=== PATIENT | male | born 1925 | race Caucasian/White ===

== ENCOUNTER 2016-04-29 12:46 | Inpatient (IN) | payer MEDICARE ==
[2016-04-29] VITALS (13 sets, daily range): BP systolic 101–153; BP diastolic 58–83; PULSE 65–92; RESP 15–24; O2SAT 96–100
[~2016-04-29] VITALS: Ht 172.7 cm; Wt 95.3 kg
[~2016-04-29 12:46] MED LIST: ACET325T51 PO; ASPI-973 PO; ATOR20TA PO; DILT120C10 PO; FERR-83 PO; FUR20 PO; LISI2.5T PO; MV,C1TAB15 PO; OMEP20CA11 PO; POLY17PO6 PO; POTA10CA42 PO; RNT300T PO; SENN-133 PO; SLO64 PO
--- NOTE | 2016-04-29 14:53 | DRSVH ---
PROCEDURE: X-RAY CHEST ONE VIEW, PORTABLE ([id number]) INDICATIONS: SHORTNESS OF BREATH TECHNIQUE: One view of the chest was acquired. COMPARISON: [facility], CR, XR CHEST 2VW, 03/26/2016, 12:42. FINDINGS: Surgical changes and devices: None. Lungs and pleura: There are increased medial right infrahilar confluent opacities. A few linear lef t retrocardiac opacities are again noted. There is mild blunting of right costophrenic angle suggest ing a small right pleural effusion. No pneumothorax. Mediastinum: Mediastinal contours appear prominent likely reflecting rotation. Heart size is border line enlarged. Bones and chest wall: No suspicious bony lesions. Overlying soft tissues appear unremarkable. IMPRESSION: 1. Increased medial right infrahilar opacities compatible with consolidation, atelectasis, or aspira tion. 2. Linear left retrocardiac opacities likely represent atelectasis or scarring. 3. Suggestion of a small right pleural effusion. Dictated by: Reymundo De Jesus M.D. on 04/29/2016 at 14:50 Approved by: Reymundo De Jesus M.D. on 04/29/2016 at 14:52
--- NOTE | 2016-04-29 15:21 | ED.REPORT ---
HPI-General Illness Date of Service Apr 29, 2016 ED Provider: Josh Corcoran DO 89yoM with PMH remarkable for Diastolic and Systolic Heart failure, SVT, second degree type 1 heart bloc, chronic troponin leak, dementia and chronic indwelling fagan catheter due to BPH presents from [facility] living facility with a report of weakness and shortness of breath. The patient is a poor historian and states that he feels perfectly normal. On comprehensive review of systems the patient denies everything except a cough, leg swelling, and both diarrhea and constipation depending on day. Nursing Notes Stated Complaint: SOB Chief Complaint: Respiratory Distress Nursing Notes Reviewed: Yes Allergies: Coded Allergies: No Known Allergies (Verified Allergy, Unknown, 07/12/15) Scheduled Aspirin (Aspirin) 81 Mg Tablet 81 MG PO DAILY Atorvastatin (Lipitor) 20 Mg Tablet 20 MG PO HS Diltiazem ER (Diltiazem ER) 120 Mg Cap.er.12h 120 MG PO BID Ferrous Sulfate (Ferrous Sulfate) 325 Mg Tablet 325 MG PO DAILY Furosemide (Furosemide) 20 Mg Tab 40 MG PO QAM Lisinopril (Lisinopril) 2.5 Mg Tablet 2.5 MG PO DAILY Magnesium Chloride (Slow-Mag) 64 Mg Tablet 64 MG PO DAILY Mv,Ca,Min/Iron Fum/FA/Lyco/Lut (Sentry Multivit & Mineral Cplt) 1 Each Tablet 1 EACH PO DAILY Omeprazole (Omeprazole) 20 Mg Capsule.dr 20 MG PO DAILY Potassium Chloride (Potassium Chloride) 10 Meq Capsule.er 10 MEQ PO BID TAKE WITH FOOD Ranitidine (Zantac) 300 Mg Tab 300 MG PO HS Scheduled PRN Acetaminophen (Acetaminophen) 325 Mg Tablet 650 MG PO Q4 PRN PRN For Pain Polyethylene Glycol 3350 (Miralax) 17 Gm/Pkt Powd.pack 17 GM PO DAILY PRN PRN For Constipation Sennosides (Senna) 8.6 Mg Tablet 8.6 MG PO BID PRN PRN For Constipation General Time Seen by MD: 13:40 [facility]red From: jail Chief Complaint Breathing problem, Cough, Weakness Hx Obtained From: Patient, Other family... (Grandson) Unable to Obtain Hx: Patient condition, Mental status Arrived By: Ambulance Sudden in Onset?: No (from [facility] records this appears to be gradual onset) Onset Occurred: Onset unknown Symptom Duration: Duration unknown Past Medical History Past Medical History Anemia Dementia chronic indwelling Fagan catheter BPH Systolic/Diastolic Congestive heart failure SVT Second degree type 1 heart block Hyperlipidemia Reports: Congestive heart failure, Hyperlipidemia Past Surgical History Reports: Tonsillectomy Smoking History Never Smoker Social History The POLST form is reviewed from the skilled nursing which specifies comfort measures only. When I review this with his son, he says limited interventions is actually the selection that they would like. Part A still is DO NOT RESUSCITATE Alcohol Use: Denies alcohol use Other Social History: Lives in skilled nursing, Local resident ([facility]) Ambulatory Status Wheelchair Review of Systems Full Review of Systems Constitutional: Denies: Chills, Fever Eyes: Denies: Blurred bilateral, Eye pain bilateral Ears / Nose / Throat: Denies: Ear ringing bilateral, Hearing loss bilateral, Sore throat Respiratory: Reports: Non-productive cough, Denies: Pleuritic pain, Shortness of breath Cardiovascular: Denies: Chest pain, Palpitations GI: Reports: Constipation, Diarrhea, Denies: Abdominal pain, Nausea, Vomiting Male: Denies Flank pain, Denies Hematuria Musculoskeletal: Reports: Extremity swelling Hematologic: Denies Bleeding, Denies Bruising Endocrine: Denies: Cold intolerance, Heat intolerance Skin: Denies Diaphoresis, Denies Rash Allergy / Immune: Denies: Rhinorrhea, Sneezing Neurologic: Denies: Headache, Numbness, Unable to speak Psychiatric: Denies: Agitation, Change mental status Complete sys rev & neg: except as marked. Physical Exam Vital Signs Vital Signs Date Time Temp Pulse Resp B/P Pulse Ox O2 Delivery O2 Flow Rate FiO2 04/29/16 13:55 36.4 80 15 133/66 98 Room Air 04/29/16 12:51 37 65 20 112/62 97 Room Air Initial VS: Reviewed General/Constitutional: Well-developed, Well-nourished Head / Eyes: Atraumatic, Normocephalic, PERRL ENT: Conjunctiva normal, No scleral icterus Neck: Supple, Non-tender, Full range of motion Abdomen / GI: Soft, Non-tender, No guarding, No rebound, No distention Back: No CVA tenderness Lymphatic: No lymphadenopathy Extremities: Vascular intact, Neuro intact, No swelling, No tenderness Skin: Warm, Dry General/Constitutional: Awake, Alert, No acute distress Appearance / Presentation: Positive: Obese chronically ill appearing Head / Eyes: Normocephalic, PERRL, No scleral icterus, Conjunctiva NL ENT: Airway patent, Mucous membranes moist, Pharynx NL Neck: Supple, No meningismus, Full range of motion, No swelling, Non-tender, No masses Neck Vascular: Positive: JVD moderate Respiratory / Chest: No respiratory distress, No rhonchi, No wheezing, No stridor, No chest tenderness Rales / Rhonchi: Positive: Rales L up to 1/3, Rales R base Heart Rate / Rhythm: Positive: Irreg irregular rhythm Heart Sounds / Murmur: Positive: Heart sounds diminished Lower Ext Edema: Positive: Anasarca chronic venous stasis changes in his lower legs bilaterally Abdomen: Non-tender, No guarding, No rebound, BS normoactive, No distention Neurologic: Speech NL Abnormal Mood/Affect: Positive: Depressed, Flat affect decreased conversation consistent with chronic dementia Re-Eval/Medical Decision Med Decision/Clinical Course 89yoM with PMH of CHF dementia and chronic indwelling fagan presents with report of weakness and shortness of breath from [facility]. The patient had clinical diagnosis of CHF exacerbation with JVD, bilateral rales, anasarca. CMP, BNP, CBC, CXR ordered currently awaiting results. The patient = living at facility with staff appears to be stable enough to be discharged on increased Lasix and follow up with PCP. Transfer of care to Dr. Sow in [facility] ED. Discharge & Departure Shift Change Sign-Out Patient Care Transferred: Yes Discussed Complaint(s): Yes Laboratory Evaluation: Done, results pending Imaging Studies: Done, await radiologist Primary Impression: CHF (congestive heart failure) Referrals: Gera Gonzalez MD (PCP) Care Transferred to: [facility] Transferred at: 15:15 Attending Statement The patient was seen and examined together with Dr. sifuentes on 04/29/16 and I have added additional information to the note above. Rakesh Sifuentes DO Apr 29, 2016 14:52 Josh Corcoran DO Apr 29, 2016 15:24
[2016-04-29 15:29] LABS: BASOPHILS % (AUTO) 0.6 % (0-3); EOSINOPHILS % (AUTO) 0.8 % (0-5); MONOCYTES % (AUTO) 9.2 % (4-12); Mean Corpuscular Hemoglobin 30.4 pg (27.0-35.0); Mean Corpuscular Volume 93.2 fL (81-100); NEUTROPHILS % (AUTO) 72.1 % (40-74); Platelet Count 240 bil/L (150-400)
[2016-04-29 16:08] LABS: TROPONIN T 0.041 ug/L (0.0-0.011)
[2016-04-29] MEDS ORDERED: Nitroglycerin 2% 1 Gm Ointment TOPICAL SCH (16:50)
[2016-04-29] MEDS ORDERED: Alum-Mag Hydrox-Simeth 30 mL Suspension PO PRN (17:35)
[2016-04-29] MEDS ORDERED: Polyethylene Glycol (PEG) 17 Gm Powder PO PRN (17:35)
[2016-04-29] MEDS ORDERED: Ondansetron 2 mg/mL 2 mL Inj IVPUSH PRN (17:35)
[2016-04-29 17:51] LABS: APPEARANCE,URINE HAZY (CLEAR,HAZY); COLOR,URINE YELLOW (YELLOW); OCCULT BLOOD,URINE TRACE (NEGATIVE); PH,URINE 5.5 (5.0-8.0); UROBILINOGEN,URINE NORMAL (NORMAL)
[2016-04-29] MEDS: 0.9% Sodium Chloride 1,000 ML IV SCH (18:29)
--- NOTE | 2016-04-29 18:52 | NUR ---
Admit to [facility] Pt arrived from ED at 1820. Pt oriented to self and time; confused about place. PIV patent and asymptomatic. VSS. No complaints of pain. Personal possessions (wheelchair with pt). No family with pt at this time.
[2016-04-29] MEDS ORDERED: AMOX1TAB11 PO (19:49)
[2016-04-29] MEDS ORDERED: OSEL75CA15 PO (19:49)
--- NOTE | 2016-04-29 23:01 | PCM.HPMED ---
Subjective Date of Service Apr 29, 2016 Primary Provider: Admitting Physician: Seun Singh MD Primary Care Physician: Gera Gonzalez MD Attending Physician: Seun Singh MD Admit Status: From the Emergency Department, 23-Hour Observation, Remote Telemetry Chief Complaint: Weakness at facility History of Present Illness: Jude [place] is a 89yo M with Diastolic and Systolic Heart failure, SVT, second degree type 1 heart bloc, chronic troponin leak, dementia and chronic indwelling fagan catheter due to BPH presents from [facility] with a report of weakness and shortness of breath. The patient is a poor historian and states that he feels perfectly normal. On comprehensive review of systems the patient denies everything except a cough, leg swelling, and both diarrhea and constipation depending on day. Facility reported some noticeable changes with weakness. Associated symptoms include bladder incontinence, bladder retention and dyspnea. Patient has indwelling catheter and is on Augmentin for UTI. Case discussed with Dr Sow, concern for elevated troponin and weakness. Plan to admit to trend troponin overnight Review of Systems: Limited due to dementia Allergies Coded Allergies: No Known Allergies (Verified Allergy, Unknown, 04/29/16) Home Medications From [facility], not yet confirmed Jude [place] [phone] 04/29/2016 11:50 AM 03/13 amoxicillin 500 mg-potassium clavulanate 125 mg tablet take 1 tablet by oral route every 12 hours for 10 days aspirin 81 mg tablet,delayed release take 1 tablet by oral route every day for heart atorvastatin 20 mg tablet GIVE 1 TABLET BY MOUTH AT BEDTIME DX: HYPERLIPIDEMIA diltiazem ER (XR/XT) 120 mg capsule,extended release,controlled GIVE 1 CAPSULE twice daily FERROUS SULFATE 325 MG TABLET GIVE 1 TABLET BY MOUTH EVERY MORNING FOR ANEMIA FUROSEMIDE 20MG TAB GIVE 2 TABLETS EVERY MORNING levofloxacin 250 mg tablet 500mg X 1 day, then 250mg daily for 6 days LISINOPRIL 2.5 MG TABLET TAKE 1 TABLET DAILY Mag 64 64 mg tablet,delayed release take 1 tablet by mouth daily omeprazole 20 mg capsule,delayed release take 1 capsule by mouth every morning 1 hour prior to breakfast for acid reflux. potassium chloride ER 10 mEq tablet,extended release GIVE 1 TABLET TWICE DAILY WITH MEALS FOR SUPPLEMENTATION. ranitidine 300 mg capsule take 1 capsule by oral route every day at bedtime for acid reflux. Senna Laxative take 2 tablet by oral route 2 times every day SENTRY VIT/MINERAL GIVE 1 TABLET BY MOUTH EVERY MORNING FOR SUPPLEMENT PMH Anemia Dementia chronic indwelling Fagan catheter BPH Diastolic Congestive heart failure SVT Second degree type 1 heart block Hyperlipidemia . Surgical History Tonsillectomy Family History Mother had a stroke in her 60s, as well as diabetes Father had a heart attack in his 60s Brother had pancreatic cancer in his 70s Brother had colon cancer in his 50s Sister has diabetes and A. fib Social History Hx Alcohol Use: No Hx Substance Use: No Hx Tobacco Use: No Smoking Status: Never Smoker Living Arrangement: Assisted Living ([facility]) Exam Vital Signs Vital Sign - Last Date Time Temp Pulse Resp B/P Pulse Ox O2 Delivery O2 Flow Rate FiO2 04/29/16 18:03 76 16 113/80 98 Room Air 04/29/16 13:55 36.4 Exam General: Alert, Demented with poor recall, No acute Distress Eyes: PERRLA, Scleral Anicteric Mouth: Mouth Normal, Mucous Membranes Moist/[employer] Neck: Supple, no Thyromegaly, trachea central. Chest & Lungs: Clear to auscultation & percussion, No adventitious breath sounds, no crackles, no wheeze Cardiovascular: Normal S1, Normal S2, No Murmurs/Rubs/Gallops, Regular Rate/ Rhythm, (No JVD, no peripheral edema) Pulses: Radial (present and equal), Dorsalis Pedi (present and equal) Abdomen: Soft, Non-tender, Non-distended, Normoactive bowel tones. Musculoskeletal: Unremarkable. Normal range of motion, no swollen or erythematous joints Extremities: No edema, no cyanosis, no clubbing. Skin: No rashes. Warm and dry, no erythematous areas Neurological: Grossly neurologically intact, has generalized weakness, Normal Speech, Sensation Intact Lymphatic: Lymph nodes Cervical and Axillary not palpable Lab and Diagnostics Labs Laboratory Tests Test 04/29/16 15:16 04/29/16 17:24 White Blood Count 8.3th/mm3 (3.8-10.1) Red Blood Count 4.11mil/mm3 (4.40-5.80) Hemoglobin 12.5g/dL (13.8-17.2) Hematocrit 38.3% (41.0-50.0) Mean Corpuscular Volume 93.2fL (81-100) Mean Corpuscular Hemoglobin 30.4pg (27.0-35.0) Mean Corpuscular Hemoglobin Concent 32.6% (32.0-37.0) Red Cell Distribution Width 15.2% (12.3-15.4) Platelet Count 240bil/L (150-400) Neutrophils (%) (Auto) 72.1% (40-74) Lymphocytes (%) (Auto) 16.7% (14-46) Monocytes (%) (Auto) 9.2% (4-12) Eosinophils (%) (Auto) 0.8% (0-5) Basophils (%) (Auto) 0.6% (0-3) Sodium Level 135mEq/L (134-144) Potassium Level 3.9mEq/L (3.5-5.2) Chloride Level 97mEq/L (97-108) Carbon Dioxide Level 23mmol/L (18-29) Blood Urea Nitrogen 15mg/dL (8-27) Creatinine 0.97mg/dL (0.76-1.27) Estimat Glomerular Filtration Rate 78mL/min (>59) Glucose Level 113mg/dL (60-99) Lactic Acid Level 1.4mmol/L (0.4-2.0) Calcium Level 8.7mg/dL (8.5-10.1) Total Bilirubin 0.3mg/dL (0.0-1.2) Aspartate Amino Transf (AST/SGOT) 19U/L (0-50) Alanine Aminotransferase (ALT/SGPT) 11U/L (0-44) Alkaline Phosphatase 101U/L (25-160) Troponin T 0.041ug/L (0.0-0.011) Pro-B-Type Natriuretic Peptide 811.6pg/mL (0-486) Total Protein 7.0g/dL (6.4-8.4) Albumin 3.6g/dL (3.4-5.0) Hold Lara Top Tube Received (Received) Urine Color Yellow (YELLOW) Urine Appearance Hazy (CLEAR,HAZY) Urine pH 5.5 (5.0-8.0) Urine Specific [place] 1.025 (1.003-1.035) Urine Protein Negativemg/dL (NEG,TRACE) Urine Glucose (UA) Negativemg/dL (NEGATIVE) Urine Ketones Negativemg/dL (NEGATIVE) Urine Occult Blood Trace (NEGATIVE) Urine Nitrite Negative (NEGATIVE) Urine Bilirubin Negative (NEGATIVE) Urine Urobilinogen Normalmg/dL (NORMAL) Urine Leukocyte Esterase Trace (NEGATIVE) Urine RBC 0-2/hpf (0-2) Urine WBC 0-5/hpf (0-5) Urine Epithelial Cells None/hpf (NONE-MOD) Urine Crystals None seen (NONE SEEN) Urine Bacteria Few/hpf (NONE-FEW) Urine Hyaline Casts None/lpf (NONE) Urine Granular Casts None seen (NONE SEEN) Urine Waxy Casts None seen (NONE SEEN) Urine Red Blood Cell Casts None seen (NONE SEEN) Urine White Blood Cell Casts None seen (NONE SEEN) Urine Mucus None seen (None Seen) Urine Trichomonas None seen (NONE SEEN) Urine Yeast None (NONE SEEN) Urinalysis Comment None Urine Culture Reflexed Indicated Microbiology 04/29/16 Blood Culture, Received Pending 04/29/16 Urine Culture, Received Pending Result Diagram: 04/29/16 1516 04/29/16 1516 X-Rays, CTs and MRIs X-RAY CHEST ONE VIEW, PORTABLE 04/29 IMPRESSION: 1. Increased medial right infrahilar opacities compatible with consolidation, atelectasis, or aspiration. 2. Linear left retrocardiac opacities likely represent atelectasis or scarring. 3. Suggestion of a small right pleural effusion. Dictated by: Reymundo De Jesus M.D. on 04/29/2016 at 14:50 Approved by: Reymundo De Jesus M.D. on 04/29/2016 at 14:52 Assessment & Plan Jude [place] is a 89yo M with Diastolic and Systolic Heart failure, SVT, second degree type 1 heart bloc, chronic troponin leak, dementia and chronic indwelling fagan catheter due to BPH presents with a report of weakness and shortness of breath. Troponin noted to be elevated prompting admission 1. Generalized weakness. Present on admission Etiology unclear but suspect multifactorial. Suspect ischemic disease in conjunction with elevated troponin. Consider deconditioning - treat underlying cause - trending troponin - Physical therapy and social work consultation 2. Elevated troponin. Present on admission Due to demand ischemia. Doubt this represents NSTEMI without any anginal or equivalent complaints - trending troponin - complete echo in the morning 3. Recent Urinary tract infection. Present on admission Urinalysis showed no infection - stop all antibiotics at this time - maintain Fagan catheter with scheduled changes at facility - outpatient Urology consultation 4. Unspecified dementia, ongoing - Patient appears to be at baseline. - Avoid benzodiazepines due to age and high risk for delirium - Consideration to avoid haloperidol given patient's ongoing cardiology concerns , however EKGs are negative for QTC prolongation currently 5. Chronic diastolic congestive heart failure, - Previous echo on August 08, 2015 shows HFpEF, no decreased EF, trace mitral and aortic valvular regurgitation, and pulmonary hypertension - no clinical evidence of decompensation or fluid overload 6. Pulmonary Hypertension, Chronic - considered probably secondary to MASOOD - evaluate for need of sleep study as an outpatient 7. Hyperlipidemia - continue Atorvastatin 20mg - Acetaminophen as needed for mild pain/fever/headache - Bowel regimen as needed - Antiemetic as needed Patient is admitted under observation status with expected length of stay less than 2 midnights due to severity of presenting symptoms, risk of adverse event, and complexity of treatment plan. . Resuscitation Status: DNR/DNI:Do Not Resuscitate/Intubate Seun Singh MD Apr 29, 2016 18:48
[2016-04-30] MEDS: Heparin 5,000 Unit/mL Inj SUBQ SCH ×3 (00:43→20:02)
[2016-04-30 01:09] VITALS: BP 132/74; PULSE 71; RESP 18; O2SAT 97
[2016-04-30] MEDS: 0.9% Sodium Chloride 1,000 ML IV SCH ×2 (04:12→14:24)
[2016-04-30 04:44] VITALS: BP 123/76; PULSE 77; RESP 20; O2SAT 96
--- NOTE | 2016-04-30 06:12 | NUR ---
Confusion Patient sleeping most of night. Patient confused about where he is. No pain. Tele sinus 71 with 1st degree. Patient alert to self only.
[2016-04-30] MEDS: Diltiazem CD 120 mg ER24 Capsule PO SCH ×2 (10:02→20:30)
[2016-04-30 11:26] VITALS: PULSE 98
[2016-04-30 12:08] VITALS: BP 143/72; PULSE 75; RESP 20; O2SAT 95
--- NOTE | 2016-04-30 13:25 | DRSVH ---
[facility] [address] [place] [address] Echocardiogram Report Name: AMERICA MARTÍNEZ Study Date: 04/30/2016 Height: 68 in Hospital Exam Location: [facility] Weight: 209 lb Gender: Male BSA: 2.1 m2 : 1925 Age: 89 yrs BP: 123/76 mmHg Reason For Study: Elevated Troponin Ordering Physician: Performed By: Arleen Muller Referring Physician: Deana Gonzalez Interpretation Summary 1) Normal left ventricular size and systolic function (EF 55-60%). 2) No obvious focal wall motion abnormalities noted but poor endocardial definition reduces the sensitivity for the detection of such. 3) Mildly dilated right ventricle with normal function. 4) Age related calcification of the aortic and mitral valves but no significant stenosis or regurgitation present. 5) Compared to the Echo done 08/08/2015, no significant change when compared visually. Procedure: A two-dimensional transthoracic echocardiogram with color flow and Doppler was performed. The study quality was technically adequate. Comparison is made with the echocardiogram of 08/08/15. The patient was in sinus tachycardia with heart rates between 71-130 bpm during the exam. Left Ventricle: The left ventricle is normal in size. Proximal septal thickening is noted. There is normal left ventricular wall thickness. The ejection fraction is estimated to be 55-60%. Left ventricular systolic function is normal. There are no obvious focal wall motion abnormalities noted but poor endocardial definition reduces the sensitivity for the detection of such. Assessment of diastolic parameters indicates a relaxation abnormality of the left ventricle, consistent with normal filling pressures. Right Ventricle: The right ventricle is mildly dilated. The right ventricular wall motion is normal. Atria: The left atrium is moderately dilated. Right atrial size is normal. The interatrial septum is intact with no evidence for an atrial septal defect. Mitral Valve: The mitral valve leaflets appear thickened, but open well. There is mild mitral annular calcification. There is mild mitral regurgitation. Aortic Valve: The aortic valve is trileaflet. Leaflet mobility is mild to moderately reduced. The aortic valve is moderately calcified. There is no aortic valve stenosis. There is trace aortic regurgitation. Tricuspid Valve: The tricuspid valve is normal in structure and function. There is trace tricuspid regurgitation. Pulmonary artery pressures cannot be estimated because of the lack of a measurable TR jet velocity. Pulmonic Valve: The pulmonic valve is normal in structure and function. There is a trace or physiologic amount of pulmonic regurgitation. Great Vessels: The aortic root is normal size. The ascending aorta is normal in size. The aortic arch could not be visualized. The pulmonary artery is not well visualized, but is probably normal size. The inferior vena cava was not visualized. Pericardium/ Pleura There is no pericardial effusion. There is no pleural effusion. MMode/2D Measurements & Calculations LVIDd: 5.0 cmLA dimension: 3.5 cm RA long axis: 5.8 cm LVOT diam LVIDs: 3.6 cm FS: 27.8 % LA A2 area: 26.5 cm RA area: 14.3 cm AoV Opening EPSS: 0.43 cmLA A4 area: 25.2 cm RA vol: 29.8 ml IVSd: 1.4 cm LA length (vol): 5.8 cm RA : 14.3 ml/m2 Ao root diam LVPWd LA vol: 98.3 ml : 0.9cm asc Aorta Diam LA vol index: 47.2 ml/m2 KATHRINE (plan) LV whittaker. diameter/BSA LV sys. diameter/BSA RVD1 (basal) (cm/m^2): 2.4 (cm/m^2): 1.7 : 1.6 cm2 Doppler Measurements & Calculations Ao V2 max MV E max uriel MV E/A: 0.86 PA V2 max : 156.8 cm/sec : 79.9 cm/sec Med Peak E' Uriel : 122.3 cm/sec Ao max PG MV A max uriel PA mean PG : 9.8 mmHg : 92.8 cm/sec E/E' med: 18.1 Ao mean PG MV P1/2t: 57.6 msec Lat Peak E' Uriel PA Accel Time : 0.06 sec LVOT Max Uriel E/E' lat: 8.1 : 103.4 cm/sec E/e' average: 13.1 KATHRINE(I,D): 2.6 cm MV A dur: 0.13 sec sev ratio MV dec time MV P1/2t max uirel Ao V2 mean LV V1 max PG : 0.19 sec : 119.2 cm/sec MVA(P1/2t): 3.8 cm2 Ao V2 VTI: 26.0 cm LV V1 VTI KATHRINE(V,D): 2.1 cm2 : 20.5 cm PA V2 mean KATHRINE indexed to BSA : 76.5 cm/sec (cm^2/m^2): 1.2 Reading Physician:01:24 PM
--- NOTE | 2016-04-30 13:40 | NUR ---
Social Work-initial assessment/readiness for discharge: Data:See initial assessment. Pt is a 89 y/o male who was admitted on 04/29/16 for weakness per H&P. Pt's insurance is [employer] and [employer] and PCP is Gera Gonzalez MD. EMR Reviewed. Pt has baseline confusion, so GIOVANI placed a call to cyndy Blandon [phone] to discuss discharge planning, GIOVANI role explained. Pt resides at [facility] where he remains independent with basic ADLS. Pt uses a w/c at baseline and does not drive. Pt has history with and has been to [email or web address] in the past. 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 SW discussed DPOA/ advanced directive, nephew confirms that this is on file at the hospital. Nephew confirms that he plans on having pt return to [facility] at discharge. GIOVANI spoke with Belia at [facility] who confirms that pt is able to return at discharge without new assessment. Belia states that GIOVANI will just need to fax over discharge orders to [phone]. Belia states they have transport available sometimes, but if not then nephew would have to transport. 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 GIOVANI will continue to follow. Assessment:Pt who reside at [facility]. Plan:Pt to discharge back to [facility] Assisted living when medically sable. [facility] will just need discharge information faxed to them upon discharge. GIOVANI will continue to follow. CLINT He Addendum: 04/30/16 at 1410 by DINO KING Amended: Links added.
--- NOTE | 2016-04-30 15:51 | PCM.PNMED ---
Subjective Date of Service Apr 30, 2016 Subjective Pt seen and examined, patient is very apathetic to his hospital admission, and it is clear that he does not fully understand to as why he is here. Patients cardiac enzymes have all been normal, he does not report any chest pain, nor does he have any cardiac dysfunction. As was seen on his echocardiogram. Patient was seen to have frequent choking episodes today, patient choked while taking meds and while eating. Patient will have his diet changed to nectar thick and he will be seen by speech and swallow tomorrow. Exam Vital Signs Vital Sign - Last Date Time Temp Pulse Resp B/P Pulse Ox O2 Delivery O2 Flow Rate FiO2 04/30/16 12:08 37.3 75 20 143/72 95 Room Air Intake and Output 04/29/16 04/29/16 04/30/16 Cumulative From/Thru 15:00 23:00 07:00 04/29/16 12:51 - 04/30/16 06:51 Intake Total 0 ml 0 ml Output Total 800 ml 450 ml 1250 ml Balance -800 ml -450 ml -1250 ml Intake Oral 0 ml 0 ml Output Urine Total 800 ml 450 ml 1250 ml Exam General: Alert, Oriented X3, Cooperative, No acute Distress Eyes: PERRLA, Scleral Anicteric Mouth: Mouth Normal, Mucous Membranes Moist/[place] Neck: Supple, no Thyromegaly, trachea central. Chest & Lungs: Clear to auscultation & percussion, No adventitious breath sounds, no crackles, no wheeze Cardiovascular: Normal S1, Normal S2, No Murmurs/Rubs/Gallops, Regular Rate/ Rhythm, (No JVD, no peripheral edema) Pulses: Radial (present and equal), Dorsalis Pedi (present and equal) Abdomen: Soft, Non-tender, Non-distended, Normoactive bowel tones. Musculoskeletal: Unremarkable. Normal range of motion, no swollen or erythematous joints Lab and Diagnostics Result Diagram: 04/29/16 1516 04/29/16 1516 X-Rays, CTs and MRIs X-RAY CHEST ONE VIEW, PORTABLE 04/29 IMPRESSION: 1. Increased medial right infrahilar opacities compatible with consolidation, atelectasis, or aspiration. 2. Linear left retrocardiac opacities likely represent atelectasis or scarring. 3. Suggestion of a small right pleural effusion. Dictated by: Reymundo De Jesus M.D. on 04/29/2016 at 14:50 Approved by: Reymundo De Jesus M.D. on 04/29/2016 at 14:52 Assessment & Plan Jude Florence is a 89yo M with Diastolic and Systolic Heart failure, SVT, second degree type 1 heart bloc, chronic troponin leak, dementia and chronic indwelling fagan catheter due to BPH presents with a report of weakness and shortness of breath. Troponin noted to be elevated prompting admission 1. Generalized weakness. Present on admission Etiology unclear but suspect multifactorial. Suspect ischemic disease in conjunction with elevated troponin. Consider deconditioning - PT has noticed a marked decline in his ability to transfer - pt additionally has new onset choking while drinking fluids - will have PT reassess and speech and swallow to see patient 2. Elevated troponin. Present on admission Due to demand ischemia. Doubt this represents NSTEMI without any anginal or equivalent complaints - negative will stop trending - ECHO is unchanged from last year 3. Recent Urinary tract infection. Present on admission Urinalysis showed no infection - stop all antibiotics at this time - maintain Fagan catheter with scheduled changes at facility - outpatient Urology consultation 4. Unspecified dementia, ongoing - Patient appears to be at baseline. - Avoid benzodiazepines due to age and high risk for delirium - Consideration to avoid haloperidol given patient's ongoing cardiology concerns , however EKGs are negative for QTC prolongation currently 5. Chronic diastolic congestive heart failure, - Previous echo on August 08, 2015 shows HFpEF, no decreased EF, trace mitral and aortic valvular regurgitation, and pulmonary hypertension - no clinical evidence of decompensation or fluid overload - ECHO is unchanged 6. Pulmonary Hypertension, Chronic - considered probably secondary to MASOOD - evaluate for need of sleep study as an outpatient 7. Hyperlipidemia - continue Atorvastatin 20mg - Acetaminophen as needed for mild pain/fever/headache - Bowel regimen as needed - Antiemetic as needed Patient is admitted under observation status with expected length of stay less than 2 midnights due to severity of presenting symptoms, risk of adverse event, and complexity of treatment plan. Anticipated discharge is tomorrow. . VTE Mechanical Devices: Intermittant Pneumatic CD Resuscitation Status: DNR/DNI:Do Not Resuscitate/Intubate Elvis Carlos MD Apr 30, 2016 15:51
--- NOTE | 2016-04-30 16:29 | NUR ---
Evaluation completed. Please go to "Notes" then click on "Assessments and Notes" (bottom left corner of screen). Then select appropriate discipline tab on top of screen.
[2016-04-30 19:55] VITALS: BP 133/72; PULSE 89; RESP 20; O2SAT 93
[2016-04-30 20:00] VITALS: PULSE 96
--- NOTE | 2016-04-30 20:01 | NUR ---
Change in condition, strict NPO Pt showing L side decrease, noticed pt coughing and belching post med administration. Water repeatedly escaped the left side of his mouth with med administration. Notified MD who ordered swallow eval and PT consult. Speech and PT consulted pt, their notes are documented. Pt found to be listing to the left with a severe decrease in strength as well as placed on a strict NPO diet with preference on IV meds only. Pt has non-productive, wet sounding cough, elevated HOB 30 degrees. Pt Alert and oriented x 1 to self, needs repeated cues. Incontinent of bowel. WCTM pt for additional changes on PT condition. MD notified aware of changes on pt condition.
--- NOTE | 2016-04-30 22:00 | NUR ---
Activity/condition Pt alert/oriented to self, not place or time and is able to follow directions. Pt is moving all extremities equally, no arm drift noted. Face is symmetrical when smiling and sticking out tongue. 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 Pt had a large BM at beginning of shift and is being turned q2 hrs. Aurea alarm is in place for safety. Tate catheter is patent, draining clear urine. Oral care performed as pt is NPO.
[2016-04-30] MEDS ORDERED: Acetaminophen IV 1,000 MG in IV Premix 1 EACH IV PRN (23:15)
[2016-05-01] VITALS (15 sets, daily range): BP systolic 89–111; BP diastolic 52–75; PULSE 69–134; RESP 14–28; O2SAT 93–99
[2016-05-01] MEDS: Heparin 5,000 Unit/mL Inj SUBQ SCH ×4 (00:30→22:27)
--- NOTE | 2016-05-01 00:33 | NUR ---
Fever Pt temperature up to 38.8. MD gallardo and ordered IV Tylenol since pt strict NPO. Administered IV Tylenol and will continue to monitor. Addendum: 05/01/16 at 0154 by STEPHANI MREAZ RN temp now down to 37 degrees celsius
--- NOTE | 2016-05-01 01:11 | NUR ---
Heparin Heparin dose off schedule, call made to Pharmacist about earliest time to give and they said to wait to give until morning 0830 dose.
[2016-05-01] MEDS: 0.9% Sodium Chloride 1,000 ML IV SCH ×4 (04:12→22:26)
--- NOTE | 2016-05-01 08:08 | NUR ---
HR SBP-109; HR-130's. Denies chest pain/nausea/SOB. Dr. Terrance gallardo and made aware. Waiting for orders at this time. Addendum: 05/01/16 at 0920 by MEREDITH CHURCHILL RN HR New orders received for IV Verapamil. Layo Layne RN to administer ordered dose. Will continue to monitor.
[2016-05-01] MEDS ORDERED: Verapamil 2.5 mg/mL 2 mL Inj IV ONE (08:20)
[2016-05-01] MEDS: Diltiazem CD 120 mg ER24 Capsule PO SCH ×2 (08:30→19:18)
--- NOTE | 2016-05-01 09:13 | NUR ---
Assist with administration of verapamil 5mg IVP. Bedside monitoring with MP 30. Heart rate 133, BP 99/56, pt denies CP/SOB or any s/s distress prior to dose. Unable to identify SD interval while tachycardic. Post verapamil heart rate is labile 77-120's. SD prolonged at .36, increased ventricular ectopy during periods of lower hear rates. While monitored pt is observed to have ~15 second apneic pauses while asleep. Please see rhythm strips posted in paper chart.
--- NOTE | 2016-05-01 10:22 | NUR ---
Social Work- Continued D/C Planning Data: EMR Reviewed. Pt is on day 2 of hospitalization for weakness. Pt resides at [facility]. PT evaluation is pending. Patient may need SNF prior to return to [facility]. GIOVANI spoke with Caterina at [facility] yesterday and provided her with update. SW to follow up with discharge planning and discuss with cyndy Wang. Pt is being transferred to Second floor. SW updated second floor SW. SW will continue to follow. Assessment: Pt to return to [facility] vs SNF. Plan: Pt to discharge back to [facility] vs. SNF. SW will continue to follow. [address]INT [address]
--- NOTE | 2016-05-01 10:55 | NUR ---
TRANSFER Patient's HR continues to be in the 110-120's. Post Verapamil IVP. Patient denies pain/nausea/SOB. IFC intact and draining to polina colored UO. Orders by Dr. Carlos to transfer patient to [facility]. Patient will be started on a Diltiazem gtt. Report given to Isac Tanner RN. Transferred to [facility] via a hospital bed. Unable to get a hold of his Gayathri. Voice message left for him to call back. Addendum: 05/01/16 at 1110 by MEREDITH CHURCHILL RN NOTIFICATION HEATHER: Felipe called back and was updated RE: Transfer to [facility].
--- NOTE | 2016-05-01 11:00 | NUR ---
Transfer Pt. was transferred from [facility] room 1020 to [facility] room 2000. Pt. arrived stable with no c/o pain, CP, or SOB, and NPO as of this time until speech dinesh sees Pt. Pt. is SR-ST with PSVT, 1st degree heart block per tele. HR fluctuates between low 60s to high 130s. Pt. is on a diltiazem gtt starting at 5mg/hr per MD order. Pt. is alert and orientated to self, Pt. is pleasant and compliant with care Addendum: 05/01/16 at 1941 by VIRGIE OROZCO RN Pt. diltiazem drip is now running at 12mg/her at this time. HR still fluctuates but now it fluctuates in the mid 60's-90's, sometimes jumping up to high 130s. Pt. had a CT scan at ~1800, Pt. is in his room at this time content with no complaints.
[2016-05-01] MEDS: Diltiazem Inj 125 MG in 0.9% Sodium Chloride 100 ML, Pharmacy To Mix 1 EA IV SCH (11:51)
--- NOTE | 2016-05-01 14:57 | NUR ---
Case Management: [facility] delivered and explained to Pt.'s nephew, Felipe Blandon [phone]. Original placed in chart. Copy left at bedside. Tiny Weiner RN
--- NOTE | 2016-05-01 16:58 | PCM.PNMED ---
Subjective Date of Service May 01, 2016 Subjective Patient seen and examined. Patient is improved in terms of his mentation however is still reluctant to convey his problems. Patients swallow evaluation is improving, however this is a sharp decline from his baseline at [facility]. Will obtain ct head today. Exam Vital Signs Vital Sign - Last Date Time Temp Pulse Resp B/P Pulse Ox O2 Delivery O2 Flow Rate FiO2 05/01/16 16:02 36.8 69 21 102/56 95 Room Air Intake and Output 04/30/16 04/30/16 05/01/16 Cumulative From/Thru 15:00 23:00 07:00 04/29/16 12:51 - 05/01/16 06:09 Intake Total 560 ml 3038 ml 3598 ml Output Total 1251 ml 550 ml 3051 ml Balance -691 ml 2488 ml 547 ml Intake Oral 560 ml 0 ml 560 ml IV Total 3038 ml 3038 ml Output Urine Total 1250 ml 550 ml 3050 ml Stool Total 1 ml 1 ml # Bowel Movements 1 1 Exam General: Patient is in no apparent distress. He remains quite comfortable. HEENT: Head is atraumatic normocephalic normal male pattern baldness.. Eyes: Pupils are equally round and reactive to light and accommodation. Extraocular muscles are intact. Sclera are white anicteric. Subconjunctival mucosa is pink. Ears and nose are unremarkable. Oropharynx: There are no mucosal lesions , there is no thrush, there is no pharyngitis. Neck: Is supple, there are no nodes, or masses or tenderness. Chest: Is clear to auscultation and percussion. There are no rales, rhonchi, wheezes or rubs. Heart: Rate, rhythm is regular. There is no murmur, rub or gallop. Abdomen: Good bowel sounds are present. Abdomen is soft, nontender, no organomegaly or masses were appreciated. Extremities: Are symmetrical and well perfused. There is no edema, there is no cellulitis, no rash. The right knee continues to show no evidence of new inflammation. Neurologic: There are no focal neurological deficits. Cranial nerves II through XII are intact. There are no sensory or motor deficits. Patient remains confused. However, he appears less confused than before Psychiatric: Patients mood is calm and shows no sign of agitation. Genital: Fagan catheter is present on site is unremarkable. Lab and Diagnostics Result Diagram: 04/29/16 1516 04/29/16 1516 X-Rays, CTs and MRIs X-RAY CHEST ONE VIEW, PORTABLE 04/29 IMPRESSION: 1. Increased medial right infrahilar opacities compatible with consolidation, atelectasis, or aspiration. 2. Linear left retrocardiac opacities likely represent atelectasis or scarring. 3. Suggestion of a small right pleural effusion. Dictated by: Reymundo De Jesus M.D. on 04/29/2016 at 14:50 Approved by: Reymundo De Jesus M.D. on 04/29/2016 at 14:52 Assessment & Plan Jude Florence is a 89yo M with Diastolic and Systolic Heart failure, SVT, second degree type 1 heart bloc, chronic troponin leak, dementia and chronic indwelling fagan catheter due to BPH presents with a report of weakness and shortness of breath. Troponin noted to be elevated prompting admission 1. Generalized weakness. Present on admission Etiology unclear but suspect multifactorial. Suspect ischemic disease in conjunction with elevated troponin. Consider deconditioning - PT has noticed a marked decline in his ability to transfer - pt additionally has new onset choking while drinking fluids - Swallow ability is improved to the point where he does not need to be npo - will repeat ct head tonite 2. Elevated troponin. Present on admission Due to demand ischemia. Doubt this represents NSTEMI without any anginal or equivalent complaints - negative will stop trending - ECHO is unchanged from last year 3. Recent Urinary tract infection. Present on admission Urinalysis showed no infection - stop all antibiotics at this time - maintain Fagan catheter with scheduled changes at facility - outpatient Urology consultation 4. Unspecified dementia, ongoing - Patient appears to be at baseline. - Avoid benzodiazepines due to age and high risk for delirium - Consideration to avoid haloperidol given patient's ongoing cardiology concerns , however EKGs are negative for QTC prolongation currently 5. Chronic diastolic congestive heart failure, - Previous echo on August 08, 2015 shows HFpEF, no decreased EF, trace mitral and aortic valvular regurgitation, and pulmonary hypertension - no clinical evidence of decompensation or fluid overload - ECHO is unchanged 6. Pulmonary Hypertension, Chronic - considered probably secondary to MASOOD - evaluate for need of sleep study as an outpatient 7. Hyperlipidemia - continue Atorvastatin 20mg - Acetaminophen as needed for mild pain/fever/headache - Bowel regimen as needed - Antiemetic as needed Patient is admitted under inpatient status with expected length of stay more than 2 midnights due to severity of presenting symptoms, risk of adverse event, and complexity of treatment plan. . VTE Mechanical Devices: Intermittant Pneumatic CD Resuscitation Status: DNR/DNI:Do Not Resuscitate/Intubate Elvis Carlos MD May 01, 2016 16:58
--- NOTE | 2016-05-01 20:09 | DRSVH ---
PROCEDURE: CT BRAIN WITHOUT CONTRAST ([id number]) INDICATIONS: new onset neurological dysfunction TECHNIQUE: Noncontrast 4.5 mm thick angled axial sections acquired from the foramen magnum to the vertex, with c oronal reformats. COMPARISON: None. FINDINGS: Image quality: Excellent. CSF spaces: Basal cisterns are patent. No extra-axial fluid collections. The ventricles are symmet aisha in size and shape. Brain: No intracranial bleeds or masses. There is severe cerebral volume loss for age, with resulta nt ventricular and sulcal prominence. There are severe periventricular and deep white matter chronic small vessel ischemic changes. There is intracranial internal carotid artery atherosclerosis. Skull and face: Calvarium and visualized facial bones appear intact, without suspicious lesions. Sinuses: Visualized sinuses and mastoids are clear. IMPRESSION: 1. No acute intracranial abnormalities. 2. Severe cerebral volume loss and chronic microvascular ischemic changes. Dictated by: Peggy Riley M.D. on 05/01/2016 at 20:06 Approved by: Peggy Riley M.D. on 05/01/2016 at 20:07
--- NOTE | 2016-05-01 21:57 | NUR ---
HR/sats Tele has been alternating between several minutes of afib in 130's and what appears to be sinus rhythm with AV block in 60's and 70's. Diltiazem decreased to 5 ml/hr. SBP has been 98-119. Denies dizziness, pain, or other symptoms. notified and orders for labs. Pt has periods of apnea while sleeping, with sats decreasing to mid-80's. On continuous pulse oximetry. Placed on 2 liters nasal cannula and sats are in mid-90's. while asleep. Addendum: 05/01/16 at 2203 by LYNN PETE RN Note that pt did receive HS dose of PO Cardizem. Tolerated this well in applesauce.
[2016-05-02] VITALS (15 sets, daily range): BP systolic 93–115; BP diastolic 64–86; PULSE 56–135; RESP 20–26; O2SAT 93–97
[2016-05-02] MEDS ORDERED: KCl 40 mEq/500 mL D5W(K 3 - 3.7 & Creat < 2) IV ONE (01:30)
[2016-05-02] MEDS: Diltiazem Inj 125 MG in 0.9% Sodium Chloride 100 ML, Pharmacy To Mix 1 EA IV SCH ×2 (03:33→16:13)
--- NOTE | 2016-05-02 06:34 | NUR ---
Tele / Cardizem IV gtt /O2 Aflutter/Afib with intermittent bursts of SR with 1st AVB and PVCs then back to Aflutter/Afib with HR 60s to 130s . IV Cardizem drip titrated up to 10mg/hour, with SBPs in the low 100s. Pt denies chest pain, pressure or palpitations. Denies SOB, O2 @ 1L NC, sats 96%, per continuous pulse oximetry.
[2016-05-02] MEDS: Diltiazem CD 120 mg ER24 Capsule PO SCH ×2 (08:22→19:39)
[2016-05-02] MEDS: Heparin 5,000 Unit/mL Inj SUBQ SCH ×2 (08:23→16:14)
--- NOTE | 2016-05-02 09:12 | DRSVH ---
PROCEDURE: X-RAY CHEST ONE VIEW ([id number]) INDICATIONS: poss aspiration pneumonia TECHNIQUE: One view of the chest was acquired. COMPARISON: [facility], CR, XR CHEST 2VW, 03/26/2016, 12:42. [facility], CR , CHEST 1VW (PORTABLE), 12/24/2013, 15:06. [facility], CR, XR CHEST 1VW (PORTABLE), 04/29, 13:53. FINDINGS: Surgical changes and devices: None. Lungs and pleura: No pleural effusions or pneumothorax. Lung volumes are low interstitium is promin ent. Bibasilar airspace opacities present, left greater than right. No pneumothorax. Mediastinum: Mediastinal contours appear normal. Heart size is enlarged. Bones and chest wall: No suspicious bony lesions. Overlying soft tissues appear unremarkable. Old right posterior-lateral rib fractures are demonstrated. IMPRESSION: 1. Cardiomegaly and interstitial prominence suggestive of developing mild pulmonary edema. Recommend clinical correlation. 2. Bibasilar airspace opacities, left greater than right consistent with patchy pulmonary edema versu s aspiration or pneumonia. Dictated by: Jorje Smith [facility] Interpreted: Annie Khalil MD on 05/02/2016 at 9:09 Transcribed by: SANDEEP on 05/02/2016 at 9:12 Approved by: Annie Khalil M.D. on 05/02/2016 at 16:54
--- NOTE | 2016-05-02 10:44 | PCM.CONPAL ---
Date of Service May 02, 2016 Date of Hospital Admission: Apr 29, 2016 at 17:50 Date of Palliative Consult: May 02, 2016 Requesting Provider: Deejay King Comment: "I don't feel pain anywhere" Reason Palliative Care Consult: Goals of Care Discussion Reason for Consultation Palliative Care received order from Dr King 05/02/16 to assist with goals of care. Patient is an 89 year old man with dementia and diastolic/systolic heart failure. He was admitted 04/29/16 for care of SOB and extreme weakness. Patient resides at [facility]. Felipe Blandon (nephew) [phone] Raquel Blandon (sister) [phone] Hospital Unit @time of consult: Progressive Care (room 2001) Palliative Care Recommendation Today is Hospital Day 3. Summary of palliative recommendations: -Symptom management (Pain/other): per Hospitalist (Purple) Team. Recommend cardiology consult. -DPOA/Advanced Directives/POLST: 1. Code: DNR/DNI 2. Pt has some limited ability to understand his medical issues but relies on considerable help for complex decision making from his HCPOA, cyndy Wang. 3. Prior POLST: signed by HCPOA pt's nephfifi Blandon and PCP Dr. Felipe Cummings on 12/24/2013 and on paper chart. -Family/emotional support: Felipe Blandon (nephfifi) [phone] Raquel Blandon (patient's sister) [phone] Patient/Family Goals: Dr. Real discussed family goals with cyndy Wang today. 1. to treat/correct cardiac arrhythmias with medications and/or simple procedural interventions per cardiology. Felipe does not think major surgery would be appropriate for his uncle due to risks at his advanced age. 2. to treat infections with medication. 3. to treat wounds. 4. to work on improving strength and mobility Purpose of these goals: so he can enjoy life more at his facility, [facility]. At baseline, he gets around the facility via wheelchair and is active in the social life there. Palliative Care Team will sign off case, as goals are clear, POLST in paper chart validated by HCPOA as correctly stating family goals. Pt has no symptoms to actively palliate. Thank you for the referral. Problems: Resuscitation Status Resuscitation Status: DNR/DNI:Do Not Resuscitate/Intubate POLST Updates/Changes Previous POLST?: Yes POLST Last Review Date: May 02, 2016 POLST Discussed with: Health Care Agent (DPOAHC) POLST Review Outcome: No Change . Advanced Care Planning Address: POLST Pain: None Pt History History of Present Illness Jude Florence is a 89yo M with Diastolic and Systolic Heart failure, SVT, second degree type 1 heart block, chronic troponin leak, dementia and chronic indwelling fagan catheter due to BPH presents from [facility] living [facility] with a report of weakness and shortness of breath. Facility reported some noticeable changes with weakness. Associated symptoms include bladder incontinence, bladder retention and dyspnea. Patient has indwelling catheter and is on Augmentin for UTI. Elevated troponin in context of systolic heart failure prompted admission. Hospital Course: Nursing has seen signs of possible TIA/stroke around 1999h 04/30 , with pt showing L facial droop and L side decreased strength, noticed pt coughing and belching post med administration. Water repeatedly escaped the left side of his mouth with med administration. Pt found to be listing to the left with a severe decrease in strength as well as placed on a strict NPO diet with preference on IV meds only. Pt had non-productive, wet sounding cough, elevated HOB 30 degrees. Pt Alert and oriented x 1 to self, needs repeated cues. Incontinent of bowel. On 04/30 by 2200, Pt alert/oriented to self, not place or time but is able to follow directions. Pt is moving all extremities equally, no arm drift noted. Face is symmetrical when smiling and sticking out tongue. 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 Now pt on diltiazem drip and cardiology consult is pending for arrhythmias. Overnight he had several minutes of afib in 130's and what appears to be sinus rhythm with AV block in 60's and 70's. Diltiazem decreased to 5 ml/hr. SBP has been 98-119. Then subsequently after diltiazem turned down, he developed Aflutter/Afib with intermittent bursts of SR with 1st AVB and PVCs then back to Aflutter/Afib with HR 60s to 130s . IV Cardizem drip titrated up to 10mg/hour, with SBPs in the low 100s. He was asymptomatic during these times. PT has seen him and recommends a SNF placement. Patient was seen to have frequent choking episodes and choked while taking meds and while eating. ST saw him on 05/01 and recommended stim diet with nectar thick liquids and 1:1 supervision for all PO due to confusion and tachypnea with eating. They also recommend follow up CXR and brain imaging due to dysphagia and stroke like symptoms that occurred yesterday, as documented by nursing. Past Medical History Significant PMH Noted: Anemia Dementia chronic indwelling Fagan catheter BPH Diastolic Congestive heart failure SVT Second degree type 1 heart block Hyperlipidemia Surgical History Tonsillectomy Family History Mother had a stroke in her 60s, as well as diabetes Father had a heart attack in his 60s Brother had pancreatic cancer in his 70s Brother had colon cancer in his 50s Sister has diabetes and A. 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 Medications Current Medications: Current Medications Acetaminophen 1000 mg/Premix 100 ml @ 400 mls/hr Q6H PRN IV; Start 04/30/16 at 23:15; Stop 05/01/16 at 23:16; Status DC Diltiazem HCl/ Sodium Chloride/ Miscellaneous 125 ml @ 5 mls/hr Q24H IV Last administered on 05/02/16t 03:33; Admin Dose 5 MLS/HR; Start 05/01/16 at 10:10 Scheduled Amoxicillin/Clav K 500-125 mg (Amoxicillin/Clav K 500-125 mg) 1 Each Tablet 1 TABLET PO bid X 10 DAYS Aspirin (Aspirin) 81 Mg Tablet 81 MG PO DAILY Atorvastatin (Lipitor) 20 Mg Tablet 20 MG PO HS Diltiazem ER (Diltiazem ER) 120 Mg Cap.er.12h 120 MG PO BID Ferrous Sulfate (Ferrous Sulfate) 325 Mg Tablet 325 MG PO DAILY Furosemide (Furosemide) 20 Mg Tab 40 MG PO QAM Lisinopril (Lisinopril) 2.5 Mg Tablet 2.5 MG PO DAILY Magnesium Chloride (Slow-Mag) 64 Mg Tablet 64 MG PO DAILY Mv,Ca,Min/Iron Fum/FA/Lyco/Lut (Sentry Multivit & Mineral Cplt) 1 Each Tablet 1 EACH PO DAILY Omeprazole (Omeprazole) 20 Mg Capsule.dr 20 MG PO DAILY Oseltamivir Phosphate (Oseltamivir Phosphate) 75 Mg Capsule 75 MG PO DAILY Potassium Chloride (Potassium Chloride) 10 Meq Capsule.er 10 MEQ PO BID TAKE WITH FOOD Ranitidine (Zantac) 300 Mg Tab 300 MG PO HS Scheduled PRN Acetaminophen (Acetaminophen) 325 Mg Tablet 650 MG PO Q4 PRN PRN For Pain Polyethylene Glycol 3350 (Miralax) 17 Gm/Pkt Powd.pack 17 GM PO DAILY PRN PRN For Constipation Sennosides (Senna) 8.6 Mg Tablet 8.6 MG PO BID PRN PRN For Constipation Objective Findings Exam Vital Sign - Last Date Time Temp Pulse Resp B/P Pulse Ox O2 Delivery O2 Flow Rate FiO2 05/02/16 08:18 37.4 133 24 110/70 95 Nasal Cannula 1.00 Intake and Output 05/01/16 05/01/16 05/02/16 Cumulative From/Thru 15:00 23:00 07:00 04/29/16 12:51 - 05/02/16 04:47 Intake Total 1519 ml 931 ml 6048 ml Output Total 401 ml 3452 ml Balance 1519 ml 530 ml 2596 ml Intake Oral 100 ml 660 ml IV Total 1519 ml 831 ml 5388 ml Output Urine Total 400 ml 3450 ml Stool Total 1 ml 2 ml # Bowel Movements 1 Objective General: Patient is in no apparent distress. He remains quite comfortable. HEENT: Head is atraumatic normocephalic normal male pattern baldness. Eyes: Pupils are equally round and reactive to light and accommodation. Extraocular muscles are intact. Sclera clear. Subconjunctival mucosa is pink. Ears and nose are unremarkable. Oropharynx: dry Neck: Is supple, there are no nodes, or masses or tenderness. Lungs: Is clear to auscultation and percussion. There are no rales, rhonchi, wheezes or rubs. Heart: Rate, rhythm is regular. There is no murmur, rub or gallop. However, there is a loud S2. Abdomen: Good bowel sounds are present. Abdomen is soft, nontender, no organomegaly or masses were appreciated. Extremities: Are symmetrical and well perfused. There is no edema, there is no cellulitis, no rash. The right knee continues to show no evidence of new inflammation. G/U: Fagan catheter in place. Neurologic: There are no focal deficits. Cranial nerves II through XII are intact. There are no sensory or motor deficits. Patient remains confused. However, he appears less confused than before Psychiatric: Patients mood is calm . Lab/Diagnostics Item Value Date Time Troponin T 0.046 ug/L *H 04/30/16 0230 Troponin T 0.034 ug/L H 04/30/16 0946 Pro-B-Type Natriuretic Peptide 1965 pg/mL H 05/01/162214 ECHO 05/01 :Interpretation Summary 1) Normal left ventricular size and systolic function (EF 55-60%). 2) No obvious focal wall motion abnormalities noted but poor endocardial definition reduces the sensitivity for the detection of such. 3) Mildly dilated right ventricle with normal function. 4) Age related calcification of the aortic and mitral valves but no significant stenosis or regurgitation present. 5) Compared to the Echo done 08/08/2015, no significant change when compared visually. . Time spent Total time 70 minutes; >50% face to face with patient and/or family, providing counselling regarding plans and recommendations, and in care coordination with his/her medical teams. Hien Real MD May 02, 2016 10:44 Item Value Date Time Troponin T 0.046 ug/L *H 04/30/16 0230 Troponin T 0.034 ug/L H 04/30/16 0946 Pro-B-Type Natriuretic Peptide 1965 pg/mL H 05/01/162214 ECHO 05/01 :Interpretation Summary 1) Normal left ventricular size and systolic function (EF 55-60%). 2) No obvious focal wall motion abnormalities noted but poor endocardial definition reduces the sensitivity for the detection of such. 3) Mildly dilated right ventricle with normal function. 4) Age related calcification of the aortic and mitral valves but no significant stenosis or regurgitation present. 5) Compared to the Echo done 08/08/2015, no significant change when compared visually. . Time spent Total time [ ] minutes; >50% face to face with patient and/or family, providing counselling regarding plans and recommendations, and in care coordination with his/her medical teams. I also spent an additional [ ] minutes counseling for advanced care planning with the patient/the patients family/the surrogate decision maker. Hien Real MD May 02, 2016 10:44
--- NOTE | 2016-05-02 11:50 | NUR ---
Palliative Care Palliative Care received order from Dr King 05/02/16 to assist with goals of care. Patient is an 89 year old man with dementia and diastolic/systolic heart failure. He was admitted 04/29/16 for care of SOB and extreme weakness. Patient resides at [facility]. Felipe Blandon (nephew) [phone] Raquel Blandon (sister) [phone] Palliative Care to follow. Jocelyne Reyes
[2016-05-02] MEDS ORDERED: Potassium Chloride 20 mEq SR Tablet PO ONE ×2 (12:15→13:40)
[2016-05-02] MEDS: 0.9% Sodium Chloride 1,000 ML IV SCH (13:00)
--- NOTE | 2016-05-02 14:16 | NUR ---
NUTRITION ASSESSMENT Assess: Pt is an 89 yo male admitted w/ generalized weakness and elevated troponin. Pt also presents w/ UTI. Pt being followed by ST. Per notes, pt swallow is worsening from baseline at detention. ST upgraded diet today from stimulation to pureed w/ NTL. Planning CT of pts head, and possible ECHO. Palliative care consulted. PMHx: Anemia, Dementia, chronic indwelling fagan catheter, BPH, diastolic CHF, SVT, 2nd degree heart block, HLD, tonsillectomy LABS: K 3.4, Cl 109, Gluc 122, Ca 8.3, Troponin 0.034 MEDICATIONS: Potassium Chloride, Ferrous Sulfate, Lasix DIET: Pureed w/ NTL PO 75-100% GI symptoms/stool: BMx1 (05/01) SKIN: Alverto 13 swelling in bilateral lower legs ANTHROPOMETRICS: Current Wt: 95.1 kg BMI: 31.9 kg/m2 Admit Wt: 95 kg IBW: 63.6 kg ESTIMATED NEEDS: BMI Calories: 4969-3847 kcal/day (20-22 kcal/kg BW) Protein: 75-95 g/day (1.2-1.5 g/kg IBW) NUTRITION DIAGNOSIS: 1) Chewing/swallowing difficulties r/t weakness and dementia as evidenced by need for texture altered diet per ST. INTERVENTION: 1) Will continue current diet as ordered d/t adequate PO intake. MONITOR/EVALUATE: PO intake, diet advancement, GI, labs, skin, wt, nutrition status, POC. Will continue to monitor per low nutrition risk guidelines. Addendum: 05/02/16 at [address] Student documentation reviewed and I agree with the above assessment. Alicia Miller, MS, RDN, CD
--- NOTE | 2016-05-02 15:51 | NUR ---
Social Work: Continued Discharge Planning D: Pt discussed in am rounds. pt is new to P[facility] floor after transfer for 1st degree heart block. Pt made inpatient on 05/01/16. PT recommendation at this time is for skilled rehab as pt is unable to transfer to a w/c on his own. Pt resides at [facility]. ST is also following pt and currently on a Stim diet. 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 HIGHWAY MAINTENANCE TECHNICIAN spoke with pt's son Felipe via telephone to review PT recommendations for SNF. SNF CHOICE LIST REVIEWED with pt's nephew. He would prefer if pt stays in [place] and would like referrals sent to [facility] and [facility] as second option. [facility] to provide referral. PPW and PASSR completed A: Pt who is currently unable to ambulate I and/or maintain upright seated position. P: Anticipate pt to discharge to skilled rehab once medically stable likely via BLS; [facility] is preference and is reviewing, [facility] is also reviewing as an alternate option. HIGHWAY MAINTENANCE TECHNICIAN to continue to follow. CLINT Welch
--- NOTE | 2016-05-02 16:39 | CONS ---
[address] [address] CONSULTATION REPORT PATIENT: AMERICA MARTÍNEZ : 1925 MR#: [id number] ADMIT: 04/29/2016 JOB ID: [id number] DATE OF SERVICE: 05/02/2016 CARDIOLOGY CONSULT: REASON FOR CONSULT: Hospitalist team asked me to see this patient regarding frequent tachycardia on telemetry. CHIEF COMPLAINT: Weakness, shortness of breath. 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 Khan multiple times and has had discussion about AV nicol slow pathway ablation but patient has refused cardiac intervention, history of diastolic heart failure, angina, dementia, hyperlipidemia, chronic Tate catheter, underlying prolonged first-degree AV block, left anterior fascicular block, partial right bundle branch block, who lives in [facility], was sent to the ER on April 29, 2016, because of weakness and shortness of breath. The patient got admitted to the hospital. He has a troponin which was abnormal. On telemetry the patient has frequent runs of regular narrow QRS tachycardia with SVT, hence Cardiology consult was sought. At present, he is lying on bed. When I asked about chest pain or shortness of breath or palpitation he denies it. In the past also when he gets SVT episode he does not complain of chest pain or significant cardiovascular symptoms. Last time he was seen by Dr. Khan in March 2016 and again discussion was made about SVT ablation but he has refused. He underwent a 2D echo on April 30, 2016, which revealed normal size left ventricle with LV ejection fraction 55% to 60% with relaxation type of diastolic dysfunction, normal right ventricular function, with mild mitral regurgitation, trivial tricuspid regurgitation, mild to moderately reduced aortic cusp leaflet without any critical aortic stenosis or pericardial effusion. His last perfusion study was in May 2013; at that time he had moderate reversible ischemia of inferior wall. 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 PAST SURGICAL HISTORY: Tonsillectomy. FAMILY HISTORY: As per the chart. Positive for pacemaker, heart attack, diabetes. ALLERGIES: No known allergies. MEDICATIONS: At group home for possible UTI he was on Augmentin, aspirin 81 mg daily, atorvastatin 20 mg daily, diltiazem ER 120 mg twice a day, ferrous sulfate 325 mg daily, Lasix 20 mg 2 tablets every morning, lisinopril 2.5 mg daily, magnesium 64 mg daily, omeprazole 20 mg daily, potassium chloride 10 mEq daily, ranitidine 300 mg daily. The patient also received levofloxacin, senna. SOCIAL HISTORY: Denies any current tobacco abuse or alcohol abuse. REVIEW OF SYSTEMS: I tried to obtain 10 points of review of systems; they are negative except as stated above. However, history is not reliable because of underlying dementia. PHYSICAL EXAMINATION: Blood pressure 93-110 systolic, diastolic 65-70. Heart rate in 60s when he is in sinus rhythm, during tachycardia up to 140. Respiratory rate 22, oxygen saturation 95% on 1 L. HEENT: No significant anemia or jaundice. Neck: No apparent JVD. No obvious carotid bruit. Chest: Decreased air entry at the bases. CVS: Clinically S1, S2 normal. No S3, no S4. Very soft ejection systolic murmur at the base. Abdomen: Obese. I do not appreciate any obvious pulsatile mass or hepatosplenomegaly. 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 Able to move all extremities. Extremities: Mild pedal edema with diffuse erythematous changes on both shins, with scratch marie and healed lesions. Vascular: No evidence of critical limb ischemia. LABORATORIES: WBC 8.3, hemoglobin 12.5, hematocrit 38.3, platelets 240, polymorphs 72.1. Sodium 143, initial potassium 3.4 and on repeat 3.6, BUN 17, creatinine 0.89, magnesium 2.0. Troponin-T 0.034. ProBNP 1965. Patient has chronically elevated troponin for a long time. X-ray chest: Cardiomegaly with prominent interstitial markings. Bilateral airspace opacities left greater than right. ASSESSMENT AND PLAN: Recurrent narrow QRS, regular tachycardia with short RP type, likely AV nicol reentrant tachycardia. The patient has multiple episodes. During tachycardia rate about 140-150 range. When he is in sinus rhythm at that time he has a very prolonged first-degree AV block, partial right bundle branch block, as well as left anterior fascicular block. [place] interval up to 240 msec based on EKG done on April 29, 2016, with occasional PVCs. QTc 441 msec. The patient has known history of refractory frequent AV nicol reentrant tachycardia. He also has a known history of coronary artery disease and at present on medical management. Again I talked to the patient and discussed about slow pathway modification and ablation, which will help everybody including hospitalist team, cardiology, and avoid frequent hospital admissions. However, the patient is not interested to undergo any kind of cardiac intervention. During tachycardia he does not feel palpitations or chest pain. However, it can cause demand ischemia as well as diastolic dysfunction which can cause worsening shortness of breath and diastolic heart failure. This is a complicated situation. As the patient is not interested to undergo any further cardiac workup, at this point of time will recommend comfort care with involvement off different disciplines including palliative care and hospice care who can provide symptomatic care at assisted living facility which will help to prevent recurrent hospitalizations. As he has underlying conduction problem too, at this point of time I am afraid of increasing Cardizem or putting beta marysol on top of Cardizem. He is already on 120 mg twice a day dose. Discussed the plan with Dr. Bunch, who is our hospitalist. He agreed and concurred. Continue tolerable dose of SHELLIE inhibitor and statin as well as antiplatelet therapy and diuretic. Watch his electrolytes closely. Thanks for the cardiology consult. At this point of time, Cardiology will sign off. TIME: Overall time spent today about 75 minutes.
--- NOTE | 2016-05-02 17:18 | NUR ---
Wound Care 89 yo chairfast male seen at bedside for pressure ulcer protocol. Skin inspection reveals his sacrum to be red but blanchable. No pressure related skin injuries noted at this time, pt in right sidelying after assessment. Recommend P500 bed and frequent positioning as pt is max assist 2 for bed mobility.
--- NOTE | 2016-05-02 18:51 | NUR ---
Heart Rate Pt. denies CP, SOB, nausea, and vomiting. Pts. heart rate is still fluctuating from 60's to mid 130's. Diltiazem drip running at 14mg/hr at this time. VS are BP 98/59, 134 P, SpO2 95% 1L NC, HR 134 at this time. Pt. is content in his bed watching TV.
[2016-05-02] MEDS ORDERED: Potassium Chloride Oral 20 mEq SR Tab(K 3 - 3.7 & Creat < 2) PO ONE (19:25)
--- NOTE | 2016-05-02 21:32 | NUR ---
Mentation/HR/Lung congestion Pt consistently repeating same phrases and asking the same questions moments after. Pt alert and orientated to self only. Calm and content demeanor. Pt HR between 77-133 on 15mg/hr of Diltiazem IV. Provider communicated about need to put in orders to have pt on telemetry as day provider wrote orders to discontinue without an order to d/c Diltiazem. Provider also agreed to have NS fluids turned down from 100ml/hr to TKO.
--- NOTE | 2016-05-02 23:22 | PCM.PNMED ---
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 Khan multiple times and has had discussion about AV nicol slow pathway ablation but patient has refused cardiac intervention, history of diastolic heart failure, angina, dementia, hyperlipidemia, chronic Fagan catheter, underlying prolonged first-degree AV block, left anterior fascicular block, partial right bundle branch block, who lives in [facility], was sent to the ER on April 29, 2016, because of weakness and shortness of breath. Author: Dr. Bird in the [facility] H[facility] consult note. 05/02/16 Overnight events: no acute overnight events. Today: Patient remains slightly confused today with baseline unknown to myself. When asked what year is it, or what time of year it is he replies "about time for the [employer] series", which happened over 3 months ago. During our interview his eyes remained fixed on the television, which was on a "comfort" channel with a running stream. He is in no distress and carried a pleasant conversation. He has no complaints at this time to speak of. Exam Vital Signs Vital Sign - Last Date Time Temp Pulse Resp B/P Pulse Ox O2 Delivery O2 Flow Rate FiO2 05/02/16 11:40 135 22 93/65 95 Nasal Cannula 1.00 05/02/16 08:18 37.4 Intake and Output 05/01/16 05/01/16 05/02/16 Cumulative From/Thru 15:00 23:00 07:00 04/29/16 12:51 - 05/02/16 04:47 Intake Total 1519 ml 931 ml 6048 ml Output Total 401 ml 3452 ml Balance 1519 ml 530 ml 2596 ml Intake Oral 100 ml 660 ml IV Total 1519 ml 831 ml 5388 ml Output Urine Total 400 ml 3450 ml Stool Total 1 ml 2 ml # Bowel Movements 1 Exam General: Patient is in no apparent distress. He remains quite comfortable. HEENT: Head is atraumatic normocephalic normal male pattern baldness.. Eyes: Pupils are equally round and reactive to light and accommodation. Extraocular muscles are intact. Sclera are white anicteric. Subconjunctival mucosa is pink. Ears and nose are unremarkable. Oropharynx: There are no mucosal lesions , there is no thrush, there is no pharyngitis. Neck: Is supple, there are no nodes, or masses or tenderness. Chest: Is clear to auscultation and percussion. There are no rales, rhonchi, wheezes or rubs. Heart: Rate, rhythm is regular. There is no murmur, rub or gallop. Abdomen: Good bowel sounds are present. Abdomen is soft, nontender, no organomegaly or masses were appreciated. Extremities: Are symmetrical and well perfused. There is no edema, there is no cellulitis, no rash. The right knee continues to show no evidence of new inflammation. Neurologic: There are no focal neurological deficits. Cranial nerves II through XII are intact. There are no sensory or motor deficits. Patient remains confused. However, he appears less confused than before Psychiatric: Patients mood is calm and shows no sign of agitation. Genital: Fagan catheter is present on site is unremarkable. IVs and Medications Medications Reviewed: Medications were reviewed in detail Lab and Diagnostics Result Diagram: 04/29/16 1516 05/02/16 0815 X-Rays, CTs and MRIs X-RAY CHEST ONE VIEW, PORTABLE 04/29 IMPRESSION: 1. Increased medial right infrahilar opacities compatible with consolidation, atelectasis, or aspiration. 2. Linear left retrocardiac opacities likely represent atelectasis or scarring. 3. Suggestion of a small right pleural effusion. Dictated by: Reymundo De Jesus M.D. on 04/29/2016 at 14:50 Approved by: Reymundo De Jesus M.D. on 04/29/2016 at 14:52 Assessment & Plan Jude Florence is a 89yo M with Diastolic and Systolic Heart failure, SVT, second degree type 1 heart bloc, chronic troponin leak, dementia and chronic indwelling fagan catheter due to BPH presents with a report of weakness and shortness of breath. 1. likely AV nicol reentrant tachycardia. present on admission, Active. - Patient is well known to cardiology, and patient does not wish to pursue ablation or other interventions at this time. - The patient has known history of refractory frequent AV nicol reentrant tachycardia. Recurrent narrow QRS, regular tachycardia with short RP type, - Continue current Cardizem PO. D/C tele monitoring. - Will D/C Dilt ggt. - Continue asa, plavix, statin, lisinopril, diuretics. 2. Chronic Generalized weakness. Present on admission. Active. Etiology unclear but suspect multifactorial. Suspect ischemic disease in conjunction with elevated troponin. Consider deconditioning - PT has noticed a marked decline in his ability to transfer - Speech eval. - Palliative care consult. 3. Chronic Elevated troponin. Present on admission. Active. Due to demand ischemia. Doubt this represents NSTEMI without any anginal or equivalent complaints - negative will stop trending - ECHO is unchanged from last year 4. Recent Urinary tract infection. Present on admission. Treated. Urinalysis showed no infection - stop all antibiotics at this time - maintain Fagan catheter with scheduled changes at facility - outpatient Urology consultation 5. Unspecified dementia, ongoing - Patient appears to be at baseline. - Avoid benzodiazepines due to age and high risk for delirium - Consideration to avoid haloperidol given patient's ongoing cardiology concerns , however EKGs are negative for QTC prolongation currently 6. Chronic diastolic congestive heart failure, - Previous echo on August 08, 2015 shows HFpEF, no decreased EF, trace mitral and aortic valvular regurgitation, and pulmonary hypertension - no clinical evidence of decompensation or fluid overload - ECHO is unchanged 7. Pulmonary Hypertension, Chronic - considered probably secondary to MASOOD - evaluate for need of sleep study as an outpatient 8. Hyperlipidemia - continue Atorvastatin 20mg - Acetaminophen as needed for mild pain/fever/headache - Bowel regimen as needed - Antiemetic as needed Patient is admitted under inpatient status with expected length of stay more than 2 midnights due to severity of presenting symptoms, risk of adverse event, and complexity of treatment plan. . Pain Evaluation: Adequate Pain Control VTE Mechanical Devices: Intermittant Pneumatic CD Resuscitation Status: DNR/DNI:Do Not Resuscitate/Intubate Attending Statement The patient was seen and examined together with Dr. Barbosa on 05/02/2016 and I agree with the history, exam and plan as outlined in the note above. . ROYAL BARBOSA DO May 02, 2016 15:52 Ezio Bunch MD May 03, 2016 07:41 ORYAL BARBOSA DO May 02, 2016 15:52
[2016-05-03] MEDS: Heparin 5,000 Unit/mL Inj SUBQ SCH ×3 (01:23→16:37)
[2016-05-03] MEDS: 0.9% Sodium Chloride 1,000 ML IV SCH ×3 (01:31→21:34)
[2016-05-03 03:50] VITALS: BP 127/82; PULSE 133; RESP 20; O2SAT 96
[2016-05-03 04:49] VITALS: PULSE 68
[2016-05-03 08:00] VITALS: PULSE 125
--- NOTE | 2016-05-03 08:57 | NUR ---
Gave access and faxed facesheet to Minoo Yoon and ROBERTO per CHYRON OPERATOR
[2016-05-03 10:01] VITALS: BP 117/75; PULSE 121; RESP 28; O2SAT 96
[2016-05-03] MEDS: Diltiazem CD 120 mg ER24 Capsule PO SCH ×2 (10:10→21:34)
[2016-05-03] MEDS ORDERED: Potassium Chloride Oral 20 mEq SR Tab(K 3 - 3.7 & Creat < 2) PO ONE (10:10)
--- NOTE | 2016-05-03 11:05 | NUR ---
Minoo Yoon has accepted with Dr. Hugo to follow [facility] Titi Min has accepted with Dr. Zavala to follow
[2016-05-03 15:18] LABS: Magnesium 1.9 mg/dL (1.6-2.6)
[2016-05-03 15:57] VITALS: BP 103/55; PULSE 136; RESP 24; O2SAT 97
--- NOTE | 2016-05-03 17:22 | NUR ---
Bladder Irrigation/Off Tele and Diltiazem drip Pt. this morning upon shift change was c/o not being able to urinate, I irrigated Pts. bladder with sterile water and at first was meeting heavy resistance. I withdrew abut 50ml of urine into syringe and Pt. stated feeling no longer the urge to urinate. Upon emptying Pts. fagan bag the urine is dark yellow with thick white mucous strings to it. Throughput shift Pt. did not c/o not being able to urinate and at ~1630 I irrigated one more time Pts. bladder. This time i fel tno reisatnce and water came back into fagan bag. Pt. was DC'D off of tele and diltiazem drip before noon. Pt. at this time does not c/o CP or SOB at this time.
--- NOTE | 2016-05-03 19:07 | PCM.PNMED ---
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 Khan multiple times and has had discussion about AV nicol slow pathway ablation but patient has refused cardiac intervention, history of diastolic heart failure, angina, dementia, hyperlipidemia, chronic Fagan catheter, underlying prolonged first-degree AV block, left anterior fascicular block, partial right bundle branch block, who lives in [facility], was sent to the ER on April 29, 2016, because of weakness and shortness of breath. Author: Dr. Bird in the [facility] H[facility]P consult note. 05/02/16 Overnight events: no acute overnight events. Today: Patient is more conversational today. We discussed the upcoming [employer] tournament and he was very insightful. He is in no distress and carried a pleasant conversation. He has no complaints at this time to speak of. Exam Vital Signs Vital Sign - Last Date Time Temp Pulse Resp B/P Pulse Ox O2 Delivery O2 Flow Rate FiO2 05/03/16 15:57 36.9 136 24 103/55 97 Nasal Cannula 2.00 Intake and Output 05/02/16 05/02/16 05/03/16 Cumulative From/Thru 15:00 23:00 07:00 04/29/16 12:51 - 05/03/16 05:11 Intake Total 1175 ml 0 ml 7223 ml Output Total 1400 ml 150 ml 5002 ml Balance -225 ml -150 ml 2221 ml Intake Oral 0 ml 0 ml 660 ml IV Total 1175 ml 6563 ml Output Urine Total 1400 ml 150 ml 5000 ml Stool Total 2 ml # Bowel Movements 1 Exam General: Patient is in no apparent distress. He remains quite comfortable. HEENT: Head is atraumatic normocephalic normal male pattern baldness.. Eyes: Pupils are equally round and reactive to light and accommodation. Extraocular muscles are intact. Sclera are white anicteric. Subconjunctival mucosa is pink. Ears and nose are unremarkable. Oropharynx: There are no mucosal lesions , there is no thrush, there is no pharyngitis. Neck: Is supple, there are no nodes, or masses or tenderness. Chest: Is clear to auscultation and percussion. There are no rales, rhonchi, wheezes or rubs. Heart: Rate, rhythm is regular. There is no murmur, rub or gallop. Abdomen: Good bowel sounds are present. Abdomen is soft, nontender, no organomegaly or masses were appreciated. Extremities: Are symmetrical and well perfused. There is no edema, there is no cellulitis, no rash. The right knee continues to show no evidence of new inflammation. Neurologic: There are no focal neurological deficits. Cranial nerves II through XII are intact. There are no sensory or motor deficits. Patient remains confused. However, he appears less confused than before Psychiatric: Patients mood is calm and shows no sign of agitation. Genital: Fagan catheter is present on site is unremarkable. IVs and Medications Medications Reviewed: Medications were reviewed in detail Lab and Diagnostics Result Diagram: 04/29/16 1516 05/03/16 1440 X-Rays, CTs and MRIs X-RAY CHEST ONE VIEW, PORTABLE 04/29 IMPRESSION: 1. Increased medial right infrahilar opacities compatible with consolidation, atelectasis, or aspiration. 2. Linear left retrocardiac opacities likely represent atelectasis or scarring. 3. Suggestion of a small right pleural effusion. Dictated by: Reymundo De Jesus M.D. on 04/29/2016 at 14:50 Approved by: Reymundo De Jesus M.D. on 04/29/2016 at 14:52 Assessment & Plan Jude Florence is a 89yo M with Diastolic and Systolic Heart failure, SVT, second degree type 1 heart bloc, chronic troponin leak, dementia and chronic indwelling fagan catheter due to BPH presents with a report of weakness and shortness of breath. 1. likely AV nicol reentrant tachycardia. present on admission, Active. - Patient is well known to cardiology, and patient does not wish to pursue ablation or other interventions at this time. - The patient has known history of refractory frequent AV nicol reentrant tachycardia. Recurrent narrow QRS, regular tachycardia with short RP type, - Continue current Cardizem PO. - Continue asa, plavix, statin, lisinopril, diuretics. 2. Chronic Generalized weakness. Present on admission. Active. Etiology unclear but suspect multifactorial. Suspect ischemic disease in conjunction with elevated troponin. Consider deconditioning - PT has noticed a marked decline in his ability to transfer - Speech eval. - Palliative care consult. 3. Chronic Elevated troponin. Present on admission. Active. Due to demand ischemia. Doubt this represents NSTEMI without any anginal or equivalent complaints - negative will stop trending - ECHO is unchanged from last year 4. Recent Urinary tract infection. Present on admission. Treated. Urinalysis showed no infection - stop all antibiotics at this time - maintain Fagan catheter with scheduled changes at facility - outpatient Urology consultation 5. Unspecified dementia, ongoing - Patient appears to be at baseline. - Avoid benzodiazepines due to age and high risk for delirium - Consideration to avoid haloperidol given patient's ongoing cardiology concerns , however EKGs are negative for QTC prolongation currently 6. Chronic diastolic congestive heart failure, - Previous echo on August 08, 2015 shows HFpEF, no decreased EF, trace mitral and aortic valvular regurgitation, and pulmonary hypertension - no clinical evidence of decompensation or fluid overload - ECHO is unchanged 7. Pulmonary Hypertension, Chronic - considered probably secondary to MASOOD - evaluate for need of sleep study as an outpatient 8. Hyperlipidemia - continue Atorvastatin 20mg - Acetaminophen as needed for mild pain/fever/headache - Bowel regimen as needed - Antiemetic as needed Patient is admitted under inpatient status with expected length of stay more than 2 midnights due to severity of presenting symptoms, risk of adverse event, and complexity of treatment plan. Joaquim . Pain Evaluation: Adequate Pain Control VTE Mechanical Devices: Intermittant Pneumatic CD Resuscitation Status: DNR/DNI:Do Not Resuscitate/Intubate Attending Statement The patient was seen and examined together with Dr. Barbosa on 05/03/2016 and I agree with the history, exam and plan as outlined in the note above. . ROYAL BARBOSA DO May 03, 2016 19:07 Ezio Bunch MD May 05, 2016 07:53
[2016-05-03 19:33] VITALS: BP 103/62; PULSE 133; RESP 22; O2SAT 96
[2016-05-04 01:55] VITALS: BP 135/73; PULSE 80; RESP 16; O2SAT 95
[2016-05-04] MEDS: Heparin 5,000 Unit/mL Inj SUBQ SCH ×2 (01:59→08:39)
[2016-05-04 03:22] LABS: Mean Corpuscular Hemoglobin 30.4 pg (27.0-35.0); Mean Corpuscular Volume 90.2 fL (81-100)
[2016-05-04] MEDS: 0.9% Sodium Chloride 1,000 ML IV SCH (06:19)
--- NOTE | 2016-05-04 06:38 | NUR ---
Mentation/BM Pt had a moment approximately at 0300 this AM where the pt was sitting on the side of the bed trying to remove clothing and inadvertently pulling on the IV insertion site. Pt was reoriented to where he was and clothing was put back on. The pt's IV site was redressed. Pt was put back into the bed and repositioned with no assistance from the pt. Pt also had brief changed since the pt had a BM that was nothing but mucous.
[2016-05-04 07:50] VITALS: BP 147/75; PULSE 89; RESP 18; O2SAT 96
[2016-05-04] MEDS: Diltiazem CD 120 mg ER24 Capsule PO SCH (08:35)
--- NOTE | 2016-05-04 10:14 | NUR ---
Mentation/Q2 turns Patient AO to self. Appropriate conversation. Cooperative with care. Watching TV at this time. Cooperative with Q2 turns. Care continues.
--- NOTE | 2016-05-04 10:23 | NUR ---
Bed position Patient watching TV leaning left toward rail of bed with HOB elevated to 45 degrees. Pt stated he could not sit in middle of bed. Repositioned pt to center of bed, placed pillows under arms for extra support. Pt resting comfortably.
--- NOTE | 2016-05-04 10:29 | PCM.DIMED ---
ROYAL BARBOSA DO 05/04/16 1027: Discharge Instructions Date of Service May 04, 2016 Dates of Hospitalization Apr 29, 2016 at 17:50 Discharge Diagnosis Discharge Diagnosis 1. AV nicol Re-entrant tachycardia. present on admission, Active. 2. Chronic Generalized weakness. Present on admission. Active. 3. Chronic Elevated troponin. Present on admission. Active. 4. Recent Urinary tract infection. Present on admission. Treated. 5. Unspecified dementia, ongoing 6. Chronic diastolic congestive heart failure, 7. Pulmonary Hypertension, Chronic 8. Hyperlipidemia Medication Instructions New Medications: Plavix 75 mg Daily. Continue other medications: Stop taking: Oseltamivir. Augmentin. Call your provider Fever or Chills, Shortness of breath, Bleeding, Chest pain, Excessive diarrhea Patient Instructions Follow-up plan Follow up with your primary care physician Dr. Gonzalez regarding your recent hospital stay at [facility]. Dr. Hugo will continue care while rehabilitating at [facility]. Follow-up with PCP in: 2 weeks Ezio Bunch MD 05/05/16 0750: Discharge Instructions Attending's Statement The patient was seen and examined together with Dr. Barbosa on 05/04/2016 and I agree with the history, exam and plan as outlined in the note above. . ROYAL BARBOSA DO May 04, 2016 10:27 Ezio Bunch MD May 05, 2016 07:50
[2016-05-04] MEDS ORDERED: CLOP75TA28 PO (11:09)
--- NOTE | 2016-05-04 11:25 | PCM.DC.MED ---
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 2. Chronic Generalized weakness. Present on admission. Active. 3. Chronic Elevated troponin. Present on admission. Active. 4. Recent Urinary tract infection. Present on admission. Treated. 5. Unspecified dementia, ongoing 6. Chronic diastolic congestive heart failure, 7. Pulmonary Hypertension, Chronic 8. Hyperlipidemia Procedures XRay, CTs & MRIs X-RAY CHEST ONE VIEW, PORTABLE 04/29 IMPRESSION: 1. Increased medial right infrahilar opacities compatible with consolidation, atelectasis, or aspiration. 2. Linear left retrocardiac opacities likely represent atelectasis or scarring. 3. Suggestion of a small right pleural effusion. Dictated by: Reymundo De Jesus M.D. on 04/29/2016 at 14:50 Approved by: Reymundo De Jesus M.D. on 04/29/2016 at 14:52 Brief History Jude Florence is a 89yo M with Diastolic and Systolic Heart failure, SVT, second degree type 1 heart block, chronic troponin leak, dementia and chronic indwelling fagan catheter due to BPH presents from [facility] living [facility] with a report of weakness and shortness of breath. Facility reported some noticeable changes with weakness. Associated symptoms include bladder incontinence, bladder retention and dyspnea. Patient has indwelling catheter and is on Augmentin for UTI. Elevated troponin in context of systolic heart failure prompted admission. Hospital Course: Nursing has seen signs of possible TIA/stroke around 2000h 04/30 , with pt showing L facial droop and L side decreased strength, noticed pt coughing and belching post med administration. Water repeatedly escaped the left side of his mouth with med administration. Pt found to be listing to the left with a severe decrease in strength as well as placed on a strict NPO diet with preference on IV meds only. Pt had non-productive, wet sounding cough, elevated HOB 30 degrees. Pt Alert and oriented x 1 to self, needs repeated cues. Incontinent of bowel. On 04/30 by 2200, Pt alert/oriented to self, not place or time but is able to follow directions. Pt is moving all extremities equally, no arm drift noted. Face is symmetrical when smiling and sticking out tongue. Cigarette Seller are just faintly weaker on left side, but still strong bilaterally. Now pt on diltiazem drip and cardiology consult is pending for arrhythmias. Overnight he had several minutes of afib in 130's and what appears to be sinus rhythm with AV block in 60's and 70's. Diltiazem decreased to 5 ml/hr. SBP has been 98-119. Then subsequently after diltiazem turned down, he developed Aflutter/Afib with intermittent bursts of SR with 1st AVB and PVCs then back to Aflutter/Afib with HR 60s to 130s . IV Cardizem drip titrated up to 10mg/hour, with SBPs in the low 100s. He was asymptomatic during these times. PT has seen him and recommends a SNF placement. Patient was seen to have frequent choking episodes and choked while taking meds and while eating. ST saw him on 05/01 and recommended stim diet with nectar thick liquids and 1:1 supervision for all PO due to confusion and tachypnea with eating. They also recommend follow up CXR and brain imaging due to dysphagia and stroke like symptoms that occurred yesterday, as documented by nursing. Patient and nephew met with palliative team. Family and patient express desire to only be medically managed for cardiac conditions with no invasive procedures. They are aware that he may have a heart attack as a result of avoiding ablation therapy for recurrent reentrant tachycardia. Cardiology has discussed with the patient ad nauseam regarding this condition and both agree to medical management and comfort measures if that fails. Hospital Course Jude Florence is a 89yo M with Diastolic and Systolic Heart failure, SVT, second degree type 1 heart bloc, chronic troponin leak, dementia and chronic indwelling fagan catheter due to BPH presents with a report of weakness and shortness of breath. 1. AV nicol reentrant tachycardia. present on admission, Active. - Patient is well known to cardiology, and patient does not wish to pursue ablation or other interventions at this time. - The patient has known history of refractory frequent AV nicol reentrant tachycardia. Recurrent narrow QRS, regular tachycardia with short RP type, - Continue current Cardizem PO 120 BID. - Continue asa, plavix, statin, lisinopril, diuretics. 2. Chronic Generalized weakness. Present on admission. Active. Etiology unclear but suspect multifactorial. Suspect ischemic disease in conjunction with elevated troponin. Consider deconditioning - PT has noticed a marked decline in his ability to transfer - Speech eval nectar thick liquids. - Palliative care reviewed patients POLST form. - Dr. Real discussed family goals with nephfifi Wang today. 1. to treat/correct cardiac arrhythmias with medications and/or simple procedural interventions per cardiology. Felipe does not think major surgery would be appropriate for his uncle due to risks at his advanced age. 2. to treat infections with medication. 3. to treat wounds. 4. to work on improving strength and mobility Purpose of these goals: so he can enjoy life more at his facility, [facility]. At baseline, he gets around the facility via wheelchair and is active in the social life there. 3. Chronic Elevated troponin. Present on admission. Active. Due to demand ischemia. Doubt this represents NSTEMI without any anginal or equivalent complaints - negative will stop trending - ECHO is unchanged from last year 4. Recent Urinary tract infection. Present on admission. Treated. Urinalysis showed no infection - stop all antibiotics at this time - was on augmentin for 7 days for outpatient proteus UTI. - Maintain Fagan catheter with scheduled changes at facility - Outpatient Urology consultation 5. Unspecified dementia, ongoing - Patient appears to be at baseline. - Avoid benzodiazepines due to age and high risk for delirium - Consideration to avoid haloperidol given patient's ongoing cardiology concerns , however EKGs are negative for QTC prolongation currently 6. Chronic diastolic congestive heart failure, - Previous echo on August 08, 2015 shows HFpEF, no decreased EF, trace mitral and aortic valvular regurgitation, and pulmonary hypertension - no clinical evidence of decompensation or fluid overload - ECHO is unchanged 7. Pulmonary Hypertension, Chronic - considered probably secondary to MASOOD - evaluate for need of sleep study as an outpatient 8. Hyperlipidemia - continue Atorvastatin 20mg - Acetaminophen as needed for mild pain/fever/headache - Bowel regimen as needed - Antiemetic as needed Patient is admitted under inpatient status with expected length of stay more than 2 midnights due to severity of presenting symptoms, risk of adverse event, and complexity of treatment plan. . Exam Vital Signs (Last) Date Time Temp Pulse Resp B/P Pulse Ox O2 Delivery O2 Flow Rate FiO2 05/04/16 07:50 36.7 89 18 147/75 96 Room Air 05/03/16 15:57 2.00 Exam General: Patient is in no apparent distress. He remains quite comfortable. HEENT: Head is atraumatic normocephalic normal male pattern baldness.. Eyes: Pupils are equally round and reactive to light and accommodation. Extraocular muscles are intact. Sclera are white anicteric. Subconjunctival mucosa is pink. Ears and nose are unremarkable. Oropharynx: There are no mucosal lesions , there is no thrush, there is no pharyngitis. Neck: Is supple, there are no nodes, or masses or tenderness. Chest: Is clear to auscultation and percussion. There are no rales, rhonchi, wheezes or rubs. Heart: Rate, rhythm is regular. There is no murmur, rub or gallop. Abdomen: Good bowel sounds are present. Abdomen is soft, nontender, no organomegaly or masses were appreciated. Extremities: Are symmetrical and well perfused. There is no edema, there is no cellulitis, no rash. The right knee continues to show no evidence of new inflammation. Neurologic: There are no focal neurological deficits. Cranial nerves II through XII are intact. There are no sensory or motor deficits. Patient remains confused. However, he appears less confused than before Psychiatric: Patients mood is calm and shows no sign of agitation. Genital: Fagan catheter is present on site is unremarkable. Test 04/29/16 15:16 04/29/16 17:24 04/30/16 09:46 05/01/16 22:15 Neutrophils (%) (Auto) 72.1% (40-74) Lymphocytes (%) (Auto) 16.7% (14-46) Monocytes (%) (Auto) 9.2% (4-12) Eosinophils (%) (Auto) 0.8% (0-5) Basophils (%) (Auto) 0.6% (0-3) Lactic Acid Level 1.4mmol/L (0.4-2.0) Total Bilirubin 0.3mg/dL (0.0-1.2) Aspartate Amino Transf (AST/SGOT) 19U/L (0-50) Alanine Aminotransferase (ALT/SGPT) 11U/L (0-44) Alkaline Phosphatase 101U/L (25-160) Total Protein 7.0g/dL (6.4-8.4) Albumin 3.6g/dL (3.4-5.0) Hold Lara Top Tube Received (Received) Urine Color Yellow (YELLOW) Urine Appearance Hazy (CLEAR,HAZY) Urine pH 5.5 (5.0-8.0) Urine Specific Anderson 1.025 (1.003-1.035) Urine Protein Negativemg/dL (NEG,TRACE) Urine Glucose (UA) Negativemg/dL (NEGATIVE) Urine Ketones Negativemg/dL (NEGATIVE) Urine Occult Blood Trace (NEGATIVE) Urine Nitrite Negative (NEGATIVE) Urine Bilirubin Negative (NEGATIVE) Urine Urobilinogen Normalmg/dL (NORMAL) Urine Leukocyte Esterase Trace (NEGATIVE) Urine RBC 0-2/hpf (0-2) Urine WBC 0-5/hpf (0-5) Urine Epithelial Cells None/hpf (NONE-MOD) Urine Crystals None seen (NONE SEEN) Urine Bacteria Few/hpf (NONE-FEW) Urine Hyaline Casts None/lpf (NONE) Urine Granular Casts None seen (NONE SEEN) Urine Waxy Casts None seen (NONE SEEN) Urine Red Blood Cell Casts None seen (NONE SEEN) Urine White Blood Cell Casts None seen (NONE SEEN) Urine Mucus None seen (None Seen) Urine Trichomonas None seen (NONE SEEN) Urine Yeast None (NONE SEEN) Urinalysis Comment None Urine Culture Reflexed Indicated Urine Legionella pneumophilia Ag Negative (Negative) Troponin T 0.034ug/L (0.0-0.011) Pro-B-Type Natriuretic Peptide 1965pg/mL (0-486) Test 05/02/16 08:15 05/02/16 22:00 05/03/16 14:40 05/04/16 02:20 Procalcitonin 0.04ng/mL (0.00-0.08) Hold Urine Received (Received) Magnesium Level 1.9mg/dL (1.6-2.6) White Blood Count 6.8th/mm3 (3.8-10.1) Red Blood Count 3.88mil/mm3 (4.40-5.80) Hemoglobin 11.8g/dL (13.8-17.2) Hematocrit 35.0% (41.0-50.0) Mean Corpuscular Volume 90.2fL (81-100) Mean Corpuscular Hemoglobin 30.4pg (27.0-35.0) Mean Corpuscular Hemoglobin Concent 33.7% (32.0-37.0) Red Cell Distribution Width 15.9% (12.3-15.4) Platelet Count 288bil/L (150-400) Sodium Level 147mEq/L (134-144) Potassium Level 3.8mEq/L (3.5-5.2) Chloride Level 113mEq/L (97-108) Carbon Dioxide Level 23mmol/L (18-29) Blood Urea Nitrogen 14mg/dL (8-27) Creatinine 0.93mg/dL (0.76-1.27) Estimat Glomerular Filtration Rate 81mL/min (>59) Glucose Level 111mg/dL (60-99) Calcium Level 8.3mg/dL (8.5-10.1) Discharge Medications Discharge Medications Aspirin (Aspirin) 81 Mg Tablet 81 MG PO DAILY (Reported) Atorvastatin (Lipitor) 20 Mg Tablet 20 MG PO HS (Reported) Clopidogrel (Clopidogrel) 75 Mg Tablet 75 MG PO DAILY Prescribed by: ROYAL PARMAR DO Diltiazem ER (Diltiazem ER) 120 Mg Cap.er.12h 120 MG PO BID (Reported) Ferrous Sulfate (Ferrous Sulfate) 325 Mg Tablet 325 MG PO DAILY (Reported) Furosemide (Furosemide) 20 Mg Tab 40 MG PO QAM (Reported) Lisinopril (Lisinopril) 2.5 Mg Tablet 2.5 MG PO DAILY (Reported) Magnesium Chloride (Slow-Mag) 64 Mg Tablet 64 MG PO DAILY (Reported) Mv,Ca,Min/Iron Fum/FA/Lyco/Lut (Sentry Multivit & Mineral Cplt) 1 Each Tablet 1 EACH PO DAILY (Reported) Omeprazole (Omeprazole) 20 Mg Capsule.dr 20 MG PO DAILY (Reported) Potassium Chloride (Potassium Chloride) 10 Meq Capsule.er 10 MEQ PO BID ( Reported) TAKE WITH FOOD Ranitidine (Zantac) 300 Mg Tab 300 MG PO HS (Reported) As needed Acetaminophen (Acetaminophen) 325 Mg Tablet 650 MG PO Q4 PRN PRN For Pain ( Reported) Polyethylene Glycol 3350 (Miralax) 17 Gm/Pkt Powd.pack 17 GM PO DAILY PRN PRN For Constipation Prescribed by: BURKE HERNANDEZ DO Sennosides (Senna) 8.6 Mg Tablet 8.6 MG PO BID PRN PRN For Constipation ( Reported) Additional med instructions New Medications: Plavix 75 mg Daily. Continue other medications: Stop taking: Oseltamivir. Augmentin. Followup Plan Follow-up plan Follow up with your primary care physician Dr. Gonzalez regarding your recent hospital stay at [facility]. Dr. Hugo will continue care while rehabilitating at [facility]. Follow-up with PCP in: 2 weeks Time spent Greater than 30 minutes was spent in preparation of discharge with greater than 50% of that time dedicated to patient counseling and coordination of care. . Attending Statement The patient was seen and examined together with Dr. Parmar on 05/04/2069 and I agree with the history, exam and plan as outlined in the note above. . copies to: Gera Gonzalez MD, COREY P DO May 04, 2016 11:17 Ezio Bunch MD May 05, 2016 07:51
--- NOTE | 2016-05-04 11:51 | NUR ---
Social Work: Discharge D: Pt discussed in am rounds. Pt is medically for discharge. Pt made inpatient on 05/01 and now has three midnights for Medicare covered SNF stay. BIN OPERATOR met with pt at bedside. Pt observed to be slouched over, unable to maintain erect seated position. Requested PT see pt for final evaluation for transportation recommendations. PT is unable to safely transport via cabulance without 3rd republican assistance. BIN OPERATOR spoke with pt's nephew about this and recommendation for BLS transport. They agree with plan for BLS transport and understand possibility of [id number] expense; they are willing to sign ABN. BIN OPERATOR spoke with [facility] who can accept the pt today. Orders, PASSR, Scripts and POLST faxed. Copies on chart. BIN OPERATOR arranged for BLS transport at 12:30 and completed PCS form and supporting documentation for [facility]. Family, pt and bedside RN updated with transport time. A: Pt who will require skilled rehab for continued strengthening and functional mobility. P: Pt to discharge to [facility] today via BLS at 12:30. CLINT Welch
--- NOTE | 2016-05-04 12:39 | NUR ---
Discharge Pt discharged at approximately 1245 to [facility] via EMS on stretcher. Sister visiting also going to [facility] in her personal vehicle. Patient left with SNF packet, IV DC'd with catheter intact Tegaderm applied, no bleeding. Patient left with all belongings in bag on personal wheelchair, also going to [facility] with EMS. Report given to EMT's. Report given to Smitha MALDONADO at [facility] at 0099
--- NOTE | 2016-05-06 14:47 | NUR ---
Palliative care note D/A: Pt [facility]'ed to [facility]. This worker has faxed most recent POLST copy to facility today. POLST dated 12/24/13 and was signed by Felipe Blandon for pt . Pt elected to be DNAR with limited additional interventions and no medically assisted nutrition. P: No further need for palliative care to follow. Delaney SOL, CCM
== END 2016-05-04 12:38 | DRG 309 ==
LOC: SED 12:46 → OBSVTOIN 17:50 → OSC 17:50 → PCC 05-01 10:14
PROVIDERS: ADMIT Hospitalist; ATTEND Hospitalist
DX: I47.1 Supraventricular tachycardia (principal); I50.32 Chronic diastolic (congestive) heart failure; F03.90 Unspecified dementia, unspecified severity, without behavioral disturbance, psychotic disturbance, mood disturbance, and anxiety; I44.1 Atrioventricular block, second degree; I25.10 Atherosclerotic heart disease of native coronary artery without angina pectoris; I48.92 Unspecified atrial flutter; R32 Unspecified urinary incontinence; I27.2 Other secondary pulmonary hypertension; E78.5 Hyperlipidemia, unspecified; Z66 Do not resuscitate; N40.1 Benign prostatic hyperplasia with lower urinary tract symptoms; I69.992 Facial weakness following unspecified cerebrovascular disease; Z79.82 Long term (current) use of aspirin

== ENCOUNTER 2016-06-13 22:55 | Inpatient (IN) | payer MEDICARE ==
[~2016-06-13] VITALS: Ht 172.7 cm; Wt 90.8 kg
[2016-06-13 22:54] VITALS: BP 112/78; PULSE 82; RESP 14; O2SAT 97
[~2016-06-13 22:55] MED LIST changes: +CLOP75TA28 PO
--- NOTE | 2016-06-13 23:13 | ED.REPORT ---
HPI-Altered Mental Status Date of Service Jun 13, 2016 ED Provider: Dr. Clark An 89 year old male with a history of dementia, Alzheimer's disease, and CHF presents to the ED from [facility] via EMS complaining of confusion and agitation. Per EMS symptoms onset at 1530 today with confusion and agitation increasing since onset. The patient reports that they are in pain right now. The patient does remember being brought to the ED in an ambulance and that they were not behaving themselves before. He denies abdominal pain. History intake is difficult because patient will not answer questions. Nursing Notes Stated Complaint: AGITATION Chief Complaint: General Complaint Nursing Notes Reviewed: Yes Allergies: Coded Allergies: No Known Allergies (Verified Allergy, Unknown, 04/29/16) Scheduled Aspirin (Aspirin) 81 Mg Tablet 81 MG PO DAILY Atorvastatin (Lipitor) 20 Mg Tablet 20 MG PO HS Clopidogrel (Clopidogrel) 75 Mg Tablet 75 MG PO DAILY Diltiazem ER (Diltiazem ER) 120 Mg Cap.er.12h 120 MG PO BID Ferrous Sulfate (Ferrous Sulfate) 325 Mg Tablet 325 MG PO DAILY Magnesium Chloride (Slow-Mag) 64 Mg Tablet 64 MG PO DAILY Mirtazapine (Mirtazapine) 15 Mg Tablet 7.5 MG PO HS Mv,Ca,Min/Iron Fum/FA/Lyco/Lut ([employer]) 1 Each Tablet 1 EACH PO DAILY Omeprazole (Omeprazole) 20 Mg Capsule.dr 20 MG PO DAILY Ranitidine (Zantac) 300 Mg Tab 300 MG PO HS Scheduled PRN Polyethylene Glycol 3350 (Miralax) 17 Gm/Pkt Powd.pack 17 GM PO DAILY PRN PRN For Constipation Sennosides (Senna) 8.6 Mg Tablet 8.6 MG PO BID PRN PRN For Constipation General Time Seen by MD: 23:12 Transferred From: [facility] Chief Complaint Confused Hx Obtained From: Patient, EMS Arrived By: Ambulance Sudden in Onset?: No Onset Occurred: 5 - 8 hours ago Symptom Duration: Since onset Progression since Onset: Constant Similar Sx Previous: No Past Medical History Past Medical History Anemia Alzheimer's disease. Dementia chronic indwelling Tate catheter BPH Systolic/Diastolic Congestive heart failure SVT Second degree type 1 heart block Hyperlipidemia. Thyroid disease. Arthritis. Reports: Congestive heart failure, GERD, Hyperlipidemia Past Surgical History Reports: Tonsillectomy Smoking History Never Smoker Social History The POLST form is reviewed from the shelter which specifies comfort measures only. When I review this with his son, he says limited interventions is actually the selection that they would like. Part A still is DO NOT RESUSCITATE Alcohol Use: Denies alcohol use Other Social History: Lives in shelter, Local resident Ambulatory Status Wheelchair Review of Systems Unable to Obtain ROS Uncooperative (will not answer questions) Physical Exam Initial Vital Signs Vital Signs (First) Date Time Temp Pulse Resp B/P Pulse Ox O2 Delivery O2 Flow Rate FiO2 06/13/16 22:54 37.3 82 14 112/78 97 Room Air Initial VS: Reviewed General/Constitutional: Awake Patient is unable to give clear historical events of the situation in question. History intake is difficult because patient will not answer questions. Head / Eyes: Atraumatic, Normocephalic, PERRL, EOMI Neck: Supple Respiratory / Chest: Atraumatic, Breath sounds NL, Breath sounds = bilat, No respiratory distress, No rales, No rhonchi, No wheezing Cardiovascular: Heart rate NL, Regular rhythm, Heart sounds NL, No gallop, No murmurs, No rubs Patient is oriented x2 to person and place. ENT: Atraumatic, Airway patent Abdomen: Soft, Non-tender Skin: Atraumatic, Color NL, Warm, Dry Upper Extremity / MS: No swelling, No edema Patient has indwelling catheter with cloudy urine. Interpretation & Diagnostics Lab Results Interpretation Result Diagram: 06/14/16 0443 06/14/16 0443 Test 06/13/16 23:27 06/13/16 23:40 06/13/16 23:50 06/14/16 00:00 Urine Color Yellow (YELLOW) Urine Appearance Cloudy (CLEAR,HAZY) Urine pH 7.0 (5.0-8.0) Urine Specific [place] 1.015 (1.003-1.035) Urine Protein 30mg/dL (NEG,TRACE) Urine Glucose (UA) Negativemg/dL (NEGATIVE) Urine Ketones Negativemg/dL (NEGATIVE) Urine Occult Blood Moderate (NEGATIVE) Urine Nitrite Positive (NEGATIVE) Urine Bilirubin Negative (NEGATIVE) Urine Urobilinogen 1.0mg/dL (NORMAL) Urine Leukocyte Esterase Moderate (NEGATIVE) Urine RBC 3-10/hpf (0-2) Urine WBC Packed/hpf (0-5) Urine Epithelial Cells Few/hpf (NONE-MOD) Urine Crystals Oxalic acid crystals (NONE Urine Bacteria Many/hpf (NONE-FEW) Urine Hyaline Casts None/lpf (NONE) Urine Granular Casts None seen (NONE SEEN) Urine Waxy Casts None seen (NONE SEEN) Urine Red Blood Cell Casts None seen (NONE SEEN) Urine White Blood Cell Casts None seen (NONE SEEN) Urine Mucus None seen (None Seen) Urine Trichomonas None seen (NONE SEEN) Urine Yeast None (NONE SEEN) Urinalysis Comment None Urine Culture Reflexed Indicated Hold Lara Top Tube Received (Received) Troponin T 0.053ug/L (0.0-0.011) Pro-B-Type Natriuretic Peptide 1558pg/mL (0-486) Lactic Acid Level 1.5mmol/L (0.4-2.0) ECG Interpretation ECG Interpretation: Rate is 158. Atrial fibrillation with rapid V-rate. Inferior infarct, old. Time: 23:32 Interpreted by: ED physician X-Ray Chest Interpretation Chest Xray Interpretation: IMPRESSION: Normal. 06/13/2016, 2314 Interpretation / Wet Read by: Wet read ED physician Re-Eval/Medical Decision Med Decision/Clinical Course 89-year-old male who became confused at his shelter and combative with staff. He was transferred here. He is alert and oriented [address] He cannot give me good recollection of the events they got him transferred here but does remember that he was transferred by ambulance. He has an indwelling Tate catheter and a urinary tract infection. He was given Rocephin 2 g IV. He was also noted initially to be in normal sinus rhythm at a rate of 82. Shortly thereafter he went into A. fib with a rate as high as 160. He was given Cardizem a total of 20 mg IV in incremental doses to achieve a heart rate of 100-110. His troponin is elevated, but has been similarly elevated in the past. His case was discussed with the hospitalist Dr. Oconnell who will admit him to the hospitalist service for further evaluation and treatment. Source of Hx: Old records, EMS Re-Evaluation/Progress #1: Time of Eval: 23:38 Re-Evaluation/Progress Note: Patient arrived to ED with pulse of 82 but is now tachycardic and in Afib. Re-Evaluation/Progress #2: Time of Eval: 23:59 Re-Evaluation/Progress Note: Rechecked patient who is still tachycardic , no change in rate. Re-Evaluation/Progress #3: Time of Eval: 01:08 Re-Evaluation/Progress Note: Rechecked patient and explained plan for admission. Patient understands and agrees with the plan. Consultation : Referral / Consult Name: Mohan Oconnell MD Consulted With: Hospitalist Call Returned at: 01:12 Note: Discussed patient case with Dr. Oconnell who accepts patient admit. Counseled Regarding: Diagnosis, Lab results, Need for admission Patient Discharge & Departure Impression: Primary Impression: UTI (urinary tract infection) due to urinary indwelling Tate catheter Indwelling urinary catheter type: indwelling urethral catheter Encounter type : initial encounter Qualified Code: T83.511A - Infection and inflammatory reaction due to indwelling urethral catheter, initial encounter Additional Impressions: Atrial fibrillation with RVR Elevated troponin Altered mental status Altered mental status type: disorientation Qualified Code: R41.0 - Disorientation, unspecified Disposition: ADMITTED TO HOSPITAL Discharge Condition All VS Reviewed: Yes Referrals: Gera Gonzalez MD (PCP) Nicole Attestation Portions of this note were transcribed by Sha Villalpando. I, Dr. Clark personally performed the history, physical exam and medical decision-making; I reviewed and confirmed the accuracy of the information in the transcribed note. Signed by: Nicole Marks, 06/14/2016, 0424. copies to: Gera Gonzalez MD, Howard L MD Jun 13, 2016 23:12 Sha Villalpando Jun 13, 2016 23:22 Creatinine 0.81mg/dL (0.76-1.27) Estimat Glomerular Filtration Rate 96mL/min (>59) Glucose Level 110mg/dL (60-99) Calcium Level 8.8mg/dL (8.5-10.1) Total Bilirubin 0.4mg/dL (0.0-1.2) Aspartate Amino Transf (AST/SGOT) 23U/L (0-50) Alanine Aminotransferase (ALT/SGPT) 14U/L (0-44) Alkaline Phosphatase 146U/L (25-160) Troponin T 0.053ug/L (0.0-0.011) Pro-B-Type Natriuretic Peptide 1558pg/mL (0-486) Total Protein 7.1g/dL (6.4-8.4) Albumin 3.2g/dL (3.4-5.0) Lactic Acid Level 1.5mmol/L (0.4-2.0) ECG Interpretation ECG Interpretation: Rate is 158. Atrial fibrillation with rapid V-rate. Inferior infarct, old. Time: 23:32 Interpreted by: ED physician X-Ray Chest Interpretation Chest Xray Interpretation: IMPRESSION: Normal. 06/13/2016, 2314 Interpretation / Wet Read by: Wet read ED physician Re-Eval/Medical Decision Med Decision/Clinical Course 89-year-old male who became confused at his shelter and combative with staff. He was transferred here. He is alert and oriented [address]. He cannot give me good recollection of the events they got him transferred here but does remember that he was transferred by ambulance. He has an indwelling Tate catheter and a urinary tract infection. He was given Rocephin 2 g IV. He was also noted initially to be in normal sinus rhythm at a rate of 82. Shortly thereafter he went into A. fib with a rate as high as 160. He was given Cardizem a total of 20 mg IV in incremental doses to achieve a heart rate of 100-110. His troponin is elevated, but has been similarly elevated in the past. His case was discussed with the hospitalist Dr. Oconnell who will admit him to the hospitalist service for further evaluation and treatment. Source of Hx: Old records, EMS Re-Evaluation/Progress #1: Time of Eval: 23:38 Re-Evaluation/Progress Note: Patient arrived to ED with pulse of 82 but is now tachycardic and in Afib. Re-Evaluation/Progress #2: Time of Eval: 23:59 Re-Evaluation/Progress Note: Rechecked patient who is still tachycardic , no change in rate. Re-Evaluation/Progress #3: Time of Eval: 01:08 Re-Evaluation/Progress Note: Rechecked patient and explained plan for admission. Patient understands and agrees with the plan. Consultation : Referral / Consult Name: Mohan Oconnell MD Consulted With: Hospitalist Call Returned at: 01:12 Note: Discussed patient case with Dr. Oconnell who accepts patient admit. Counseled Regarding: Diagnosis, Lab results, Need for admission Patient Discharge & Departure Impression: Primary Impression: UTI (urinary tract infection) due to urinary indwelling Tate catheter Disposition: ADMITTED TO HOSPITAL Discharge Condition All VS Reviewed: Yes Referrals: Gera Gonzalez MD (PCP) Nicole Attestation Portions of this note were transcribed by Sha Villalpando. I, Dr. Clark personally performed the history, physical exam and medical decision-making; I reviewed and confirmed the accuracy of the information in the transcribed note. Signed by: Nicole Marks, 06/14/2016, 0424. copies to: Gera Gonzalez MD, Howard L MD Jun 13, 2016 23:12 Sha Villalpando Jun 13, 2016 23:22 copies to: Gera Gonzalez MD, Howard L MD Jun 13, 2016 23:12 Sha Villalpando Jun 13, 2016 23:22
[2016-06-13] MEDS ORDERED: Diltiazem 5 mg/mL 5 mL Inj IVPUSH ONE (23:35)
[2016-06-13 23:39] LABS: APPEARANCE,URINE CLOUDY (CLEAR,HAZY); COLOR,URINE YELLOW (YELLOW)
[2016-06-13 23:40] LABS: OCCULT BLOOD,URINE MODERATE (NEGATIVE)
[2016-06-13] MEDS ORDERED: cefTRIAXone Inj 2,000 MG in Dextrose 5% Minibag Plus 50 ML IV ONE (23:50)
[2016-06-14] VITALS (13 sets, daily range): BP systolic 91–130; BP diastolic 62–87; PULSE 68–145; RESP 10–27; O2SAT 92–98
[2016-06-14] LABS: BASOPHILS % (AUTO) 0.9 % (0-3); EOSINOPHILS % (AUTO) 2.7 % (0-5); MONOCYTES % (AUTO) 7.8 % (4-12); Mean Corpuscular Hemoglobin 30.4 pg (27.0-35.0); Mean Corpuscular Volume 91.4 fL (81-100); NEUTROPHILS % (AUTO) 78.5 % (40-74); Platelet Count 309 bil/L (150-400)
[2016-06-14] MEDS ORDERED: Diltiazem 5 mg/mL 5 mL Inj IVPUSH ONE ×2 (00:15→01:10)
[2016-06-14 01:01] LABS: TROPONIN T 0.053 ug/L (0.0-0.011)
[2016-06-14] MEDS ORDERED: 0.9% Sodium Chloride 1,000 ML IV ONE (01:10)
--- NOTE | 2016-06-14 02:03 | PCM.HPMED ---
Subjective Date of Service Jun 14, 2016 Primary Provider: Admitting Physician: Mohan Oconnell MD Primary Care Physician: Gera Gonzalez MD Attending Physician: Mohan Oconnell MD Admit Status: From the Emergency Department Chief Complaint: Confusion and agitation. History of Present Illness: 89 y/o male with a history of heart failure, SVT, second degree heart block type 1, chronically elevated troponin, dementia and chronic indwelling fagan catheter due to BPH who presented to the ED via EMS from [facility] with a report of increased confusion and agitation. He is a poor historian and history is limited due to patient condition. Patient endorses limited memory of the events leading up to his admission but states that he is without complaint. He endorses leg swelling as well as alternating diarrhea and constipation but denies fever, chills, nausea or vomiting. [facility] reported noticeable changes in his mental status as well as increased agitation and combative behavior. In the ED, vitals: temp 37.3C, BP 112/79, HR 145, RR 14-27, SpO2 97% room air. Labs: troponin 0.054, proBNP 1558, wbc 7.0, H/H 12.7/38.2, plt 309, sodium 135, potassium 4.0, chloride 98, bicarb 20, BUN 12, creatinine 0.81, serum glucose 110. 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 CXR without acute cardiopulmonary process. Review of Systems: Limited due to patient condition. Allergies Coded Allergies: No Known Allergies (Verified Allergy, Unknown, 04/29/16) Home Medications Med rec incomplete at time of admission. Med list reported, not confirmed: Aspirin 81 MG PO DAILY Atorvastatin 20 MG PO HS Clopidogrel 75 MG PO DAILY Diltiazem ER 120 MG PO BID Ferrous Sulfate 325 MG PO DAILY Furosemide 40 MG PO QAM Lisinopril 2.5 MG PO DAILY Magnesium Chloride 64 MG PO DAILY Mv,Ca,Min/Iron Fum/FA/Lyco/Lut 1 EACH PO DAILY Omeprazole 20 MG PO DAILY Potassium Chloride 10 MEQ PO BID [id number] MG PO HS Scheduled PRN Acetaminophen 650 MG PO Q4 PRN For Pain Polyethylene Glycol 3350 17 GM PO DAILY PRN For Constipation Sennosides 8.6 MG PO BID PRN For Constipation PMH Anemia Dementia Chronic indwelling Fagan catheter BPH Systolic/Diastolic Congestive heart failure SVT 2nd degree AV block, type 1 Hyperlipidemia Surgical History Tonsillectomy Family History Mother had a stroke in her 60s, as well as diabetes Father had a heart attack in his 60s Brother had pancreatic cancer in his 70s Brother had colon cancer in his 50s Sister has diabetes and A. fib Social History Hx Alcohol Use: No Hx Substance Use: No Hx Tobacco Use: No Smoking Status: Never Smoker Living Arrangement: Assisted Living Exam Vital Signs Vital Sign - Last Date Time Temp Pulse Resp B/P Pulse Ox O2 Delivery O2 Flow Rate FiO2 06/14/16 01:18 106 21 91/64 96 Room Air 06/13/16 22:54 37.3 Intake and Output 06/13/16 06/13/16 06/14/16 Cumulative From/Thru 14:59 22:59 06:59 06/14/16 01:15 - 06/14/16 01:15 Intake Total 1000 ml 1000 ml Balance 1000 ml 1000 ml Intake IV Total 1000 ml 1000 ml Exam Gen: Ill-appearing, non-toxic, elderly male in mild distress, moaning and minimally interactive. HEENT: Normocephalic, atraumatic. PERRLA, normal conjunctivae, dry mucosa. Neck: Nontender, No JVD, bruits, lymphadenopathy or thyromegaly. Cardiac: Irregular rhythm, tachycardic, no murmurs, rubs, or gallops appreciated Lungs: Diminished, poor respiratory effort, grossly clear to auscultation, no wheezes, crackles or rhonchi. Abdomen: Bowel tones present. Soft, diffusely tender, nondistended. No masses appreciated. Ext: Warm, dry, no cyanosis or edema. Skin: Decreased turgor, no rashes or ulcerations noted. Neuro: Difficult to assess due to patient condition, no obvious focal neurologic deficit, moving all four extremities. Lab and Diagnostics Labs Laboratory Tests Test 06/13/16 23:27 06/13/16 23:40 06/13/16 23:50 Urine Color Yellow (YELLOW) Urine Appearance Cloudy (CLEAR,HAZY) Urine pH 7.0 (5.0-8.0) Urine Specific [place] 1.015 (1.003-1.035) Urine Protein 30mg/dL (NEG,TRACE) Urine Glucose (UA) Negativemg/dL (NEGATIVE) Urine Ketones Negativemg/dL (NEGATIVE) Urine Occult Blood Moderate (NEGATIVE) Urine Nitrite Positive (NEGATIVE) Urine Bilirubin Negative (NEGATIVE) Urine Urobilinogen 1.0mg/dL (NORMAL) Urine Leukocyte Esterase Moderate (NEGATIVE) Urine RBC 3-10/hpf (0-2) Urine WBC Packed/hpf (0-5) Urine Epithelial Cells Few/hpf (NONE-MOD) Urine Crystals Oxalic acid crystals (NONE Urine Bacteria Many/hpf (NONE-FEW) Urine Hyaline Casts None/lpf (NONE) Urine Granular Casts None seen (NONE SEEN) Urine Waxy Casts None seen (NONE SEEN) Urine Red Blood Cell Casts None seen (NONE SEEN) Urine White Blood Cell Casts None seen (NONE SEEN) Urine Mucus None seen (None Seen) Urine Trichomonas None seen (NONE SEEN) Urine Yeast None (NONE SEEN) Urinalysis Comment None Urine Culture Reflexed Indicated Hold Lara Top Tube Received (Received) White Blood Count 7.0th/mm3 (3.8-10.1) Red Blood Count 4.18mil/mm3 (4.40-5.80) Hemoglobin 12.7g/dL (13.8-17.2) Hematocrit 38.2% (41.0-50.0) Mean Corpuscular Volume 91.4fL (81-100) Mean Corpuscular Hemoglobin 30.4pg (27.0-35.0) Mean Corpuscular Hemoglobin Concent 33.2% (32.0-37.0) Red Cell Distribution Width 15.2% (12.3-15.4) Platelet Count 309bil/L (150-400) Neutrophils (%) (Auto) 78.5% (40-74) Lymphocytes (%) (Auto) 9.1% (14-46) Monocytes (%) (Auto) 7.8% (4-12) Eosinophils (%) (Auto) 2.7% (0-5) Basophils (%) (Auto) 0.9% (0-3) Sodium Level 135mEq/L (134-144) Potassium Level 4.0mEq/L (3.5-5.2) Chloride Level 98mEq/L (97-108) Carbon Dioxide Level 20mmol/L (18-29) Blood Urea Nitrogen 12mg/dL (8-27) Creatinine 0.81mg/dL (0.76-1.27) Estimat Glomerular Filtration Rate 96mL/min (>59) Glucose Level 110mg/dL (60-99) Calcium Level 8.8mg/dL (8.5-10.1) Total Bilirubin 0.4mg/dL (0.0-1.2) Aspartate Amino Transf (AST/SGOT) 23U/L (0-50) Alanine Aminotransferase (ALT/SGPT) 14U/L (0-44) Alkaline Phosphatase 146U/L (25-160) Troponin T 0.053ug/L (0.0-0.011) Pro-B-Type Natriuretic Peptide 1558pg/mL (0-486) Total Protein 7.1g/dL (6.4-8.4) Albumin 3.2g/dL (3.4-5.0) Microbiology 06/13/16 Urine Culture, Received Pending Result Diagram: 06/13/162 06/13/16 2350 Assessment & Plan 89 y/o demented male with a history of heart failure, SVT, 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 Admitted for Afib w/RVR and altered mental status secondary to UTI. 1. Afib w/RVR, present on admission. Active. -Hx of SVT and second degree AV block, type 1. -s/p IV pushes of diltiazem in the ED, 10mgx1, 5mgx2. -admitted to [facility] with telemetry -Day team consider, continue home po diltiazem, pending med rec. 2. Acute UTI, present on admission. Active. -Hx of BPH w/chronic indwelling Fagan catheter and recurrent UTIs -UA +pyuria, leukocyte esterase, nitrite, occult blood; culture pending -s/p 1L bolus of normal saline, 1g IV ceftriaxone in the ED -continue IV ceftriaxone, 2g q24h. pending culture results -IVFs: NS at 125mls/hr -CBC, CMP in the morning 3. Elevated troponin, resent on admission. Active. -Hx of chronically elevated troponin per chart review. Likely due to demand ischemia. -ECG: Afib w/ rate 158, evidence of old inferior infarct. No acute ST changes. -troponin 0.053 on admission, will trend 4. Unspecified dementia, present on admission. Ongoing - Increased confusion/agitation likely secondary to #2, otherwise reportedly at baseline. - Avoid benzodiazepines due to age and high risk for delirium 5. Chronic diastolic congestive heart failure, present on admission. Ongoing. - Previous ECHO on 04/30/16 shows HFpEF (EF 55-60%), no obvious focal wall motion abnormalities. - Clinically no evidence of decompensation or fluid overload - Held lisinopril, furosemide held for hypotension, day team to resume when appropriate. 6. Chronic hyperlipidemia, present on admission. Ongoing. - continue home statin CODE STATUS: DNR/DNI FEN: heart healthy IVF: NS at 100mls/hr DVT Prophylaxis: Sub-q Heparin, 5,000units Q8h PRN: Acetaminophen-fever/headache/mild/moderate pain Antiemetics, as needed Bowel regimen, as needed. Disposition: Patient is admitted under observation status with expected length of stay less than 2 midnights due to severity of presenting symptoms, risk of adverse event, and complexity of treatment plan. Pain Evaluation: Adequate Pain Control GI Prophylaxis: Not indicated VTE Prophylaxis: Sub-Q Heparin (Unfractionated) Resuscitation Status: DNR/DNI:Do Not Resuscitate/Intubate Attending Statement The patient was seen and examined together with Dr. Germain on 06/14/2016 and I agree with the history, exam and plan as outlined in the note above. Salena Fonseca DO Jun 14, 2016 02:03 Mohan Oconnell MD Jun 14, 2016 04:21 [id number] MG PO HS Scheduled PRN Acetaminophen 650 MG PO Q4 PRN For Pain Polyethylene Glycol 3350 17 GM PO DAILY PRN For Constipation Sennosides 8.6 MG PO BID PRN For Constipation Pain Evaluation: Adequate Pain Control GI Prophylaxis: Not indicated VTE Prophylaxis: Sub-Q Heparin (Unfractionated) Resuscitation Status: DNR/DNI:Do Not Resuscitate/Intubate Salena Fonseca DO Jun 14, 2016 02:03 Salena Fonseca DO Jun 14, 2016 02:03 PRN: Acetaminophen-fever/headache/mild/moderate pain Antiemetics, as needed Bowel regimen, as needed. Disposition: Patient is admitted under observation status with expected length of stay less than 2 midnights due to severity of presenting symptoms, risk of adverse event, and complexity of treatment plan. Pain Evaluation: Adequate Pain Control GI Prophylaxis: Not indicated VTE Prophylaxis: Sub-Q Heparin (Unfractionated) Resuscitation Status: DNR/DNI:Do Not Resuscitate/Intubate Salena Fonseca DO Jun 14, 2016 02:03 - Previous echo on August 08, 2015 shows HFpEF, no decreased EF, trace mitral and aortic valvular regurgitation, and pulmonary hypertension - no clinical evidence of decompensation or fluid overload SVT 2nd degree AV block, type 1 6. Hyperlipidemia - continue Atorvastatin 20mg CODE STATUS: DNR/DNI FEN: IVF: GI Prophylaxis: DVT Prophylaxis: Sub-q Heparin, 5,000units Q8h PRN: Acetaminophen-fever/headache/mild/moderate pain Antiemetics, as needed Bowel regimen, as needed. Disposition: Patient is admitted under observation status with expected length of stay less than 2 midnights due to severity of presenting symptoms, risk of adverse event, and complexity of treatment plan. Pain Evaluation: Adequate Pain Control GI Prophylaxis: Not indicated VTE Prophylaxis: Sub-Q Heparin (Unfractionated) Resuscitation Status: DNR/DNI:Do Not Resuscitate/Intubate Salena Fonseca DO Jun 14, 2016 02:03
[2016-06-14] MEDS ORDERED: Alum-Mag Hydrox-Simeth 30 mL Suspension PO PRN (02:25)
[2016-06-14] MEDS ORDERED: Ondansetron 2 mg/mL 2 mL Inj IVPUSH PRN ×2 (02:25→02:40)
[2016-06-14] MEDS ORDERED: Polyethylene Glycol (PEG) 17 Gm Powder PO PRN ×2 (02:40→10:25)
[2016-06-14] MEDS: 0.9% Sodium Chloride 1,000 ML IV SCH ×2 (03:54→11:51)
[2016-06-14] MEDS ORDERED: POLY17PO6 PO (04:09)
[2016-06-14] MEDS ORDERED: MIRT15TA6 PO (04:09)
[2016-06-14 04:52] LABS: EOSINOPHILS % (AUTO) 4.5 % (0-5); MONOCYTES % (AUTO) 8.4 % (4-12); Mean Corpuscular Volume 92.2 fL (81-100); NEUTROPHILS % (AUTO) 70.8 % (40-74); Platelet Count 254 bil/L (150-400)
[2016-06-14 05:11] LABS: Magnesium 1.9 mg/dL (1.6-2.6)
--- NOTE | 2016-06-14 05:13 | NUR ---
admit: pt alert to self only, sleepy, moans with turning Q2hrs. pt not able to provide health history, recall values and [place] paper work used to complete admit questions and med rec. pt sleeping at this time. IVF infusing per orders will continue to monitor pt.
--- NOTE | 2016-06-14 08:03 | DRSVH ---
PROCEDURE: X-RAY CHEST ONE VIEW, PORTABLE ([id number]) INDICATIONS: altered mental status TECHNIQUE: One view of the chest was acquired. COMPARISON: 05/02/2016 FINDINGS: Surgical changes and devices: None. Lungs and pleura: No pleural effusions or pneumothorax. Right lower lobe atelectasis with blurring o f the right hemidiaphragm. This could represent pneumonia or atelectasis. Mediastinum: Mediastinal contours appear normal. Heart size is normal with left ventricular contour . Aortic calcifications. Mild elevation left hemidiaphragm. Bones and chest wall: No suspicious bony lesions. Overlying soft tissues appear unremarkable. IMPRESSION: Right lower lobe opacity suspect for pneumonia/aspiration. Dictated by: Hector Garcia M.D. on 06/14/2016 at 8:00 Approved by: Hector Garcia M.D. on 06/14/2016 at 8:02
--- NOTE | 2016-06-14 10:22 | PCM.PNMED ---
Subjective Date of Service Jun 14, 2016 Subjective Patient admitted last night with UTI, new a-fib. Started on antibiotics and fluids. Pulse 90-120 range. No other problems per nursing staff. Patient nice but due to dementia can not offer any other information, but has no specific complaints today. Exam Vital Signs Vital Sign - Last Date Time Temp Pulse Resp B/P Pulse Ox O2 Delivery O2 Flow Rate FiO2 06/14/16 08:54 36.8 96 20 111/71 92 Room Air Intake and Output 06/13/16 06/13/16 06/14/16 Cumulative From/Thru 15:00 23:00 07:00 06/14/16 01:15 - 06/14/16 03:07 Intake Total 1000 ml 1000 ml Balance 1000 ml 1000 ml IV Total 1000 ml 1000 ml Exam Eyes; patti eom intact enmt; slightly reduced hydration, no active lesion, no JVD CV; rate = 100, systolic murmur, irregular Resp; coarse but otherwise clear GI; soft non acute benign Skin; no active lesions or rash Neuro; 2-12 intact, no overt motor or sensory defects, dementia Lab and Diagnostics Result Diagram: 06/14/1644206/14/16442 Assessment & Plan 89 y/o demented male with a history of heart failure, SVT, 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 Admitted for Afib w/RVR and altered mental status secondary to UTI. 1. Acute Afib w/RVR, poa. Active. -Hx of SVT and second degree AV block, type 1. -cardizem 60 PO q8 hours, watch on tele and adjust dose in AM -ASA 91 mg,plavis 75, will defer to outpatient primary care as to use warfarin or not. -echo/thyroid tests Lipitor 2. Acute UTI, poa. Active. -Hx of BPH w/chronic indwelling Fagan catheter and recurrent UTIs -UA +pyuria, leukocyte esterase, nitrite, occult blood; culture pending -s/p 1L bolus of normal saline, 1g IV ceftriaxone in the ED -continue IV ceftriaxone, 2g q24h. pending culture results -IVFs: NS at 60 cc/hour 3.Chronic Troponin Elevation of unknown significance, poa. stable. -Hx of chronically elevated troponin per chart review. Likely due to demand ischemia. -ECG: Afib w/ rate 158, evidence of old inferior infarct. No acute ST changes. -troponin 0.053 on admission, will trend 4. Unspecified dementia, present on admission. Ongoing - Increased confusion/agitation likely secondary to UTI, otherwise reportedly at baseline. - Avoid benzodiazepines due to age and high risk for delirium -continue mirtazapine 5. Chronic diastolic congestive heart failure, present on admission. Ongoing. - Previous ECHO on 04/30/16 shows HFpEF (EF 55-60%), no obvious focal wall motion abnormalities. - Clinically no evidence of decompensation or fluid overload - resume lisinopril and diuretic when stable 6. Chronic hyperlipidemia, present on admission. Ongoing. - continue home statin 7. Disposition -[facility] [place], CODE STATUS: DNR/DNI FEN: heart healthy IVF: NS at 100mls/hr DVT Prophylaxis: Sub-q Heparin, 5,000units Q8h PRN: Acetaminophen-fever/headache/mild/moderate pain Antiemetics, as needed Bowel regimen, as needed. Disposition: Patient is admitted under inpatient status with expected length of stay greater than 2 midnights due to severity of presenting symptoms, risk of adverse event, and complexity of treatment plan. GI Prophylaxis: Not indicated VTE Prophylaxis: Sub-Q Heparin (Unfractionated) Resuscitation Status: DNR/DNI:Do Not Resuscitate/Intubate Merlyn Judge MD Jun 14, 2016 10:22
--- NOTE | 2016-06-14 10:33 | NUR ---
Wound Care Pressure ulcer protocol received, pt seen at bedside, No pressure related skin issues are noted at this time.
[2016-06-14] MEDS: Pantoprazole 20 mg ER24 Tablet PO SCH (11:52)
--- NOTE | 2016-06-14 11:58 | DRSVH ---
PROCEDURE: US RENAL SONOGRAM INDICATIONS: 89 year-old male with UTI. TECHNIQUE: Real-time scanning was performed of the kidneys and bladder, with image documentation. COMPARISON: [facility], CT, CT KUB, 11/02/2015, 18:40. [facility], US, US RENAL, 12/08/2015, 8:39. FINDINGS: Kidneys: Kidneys are normal in size. Right kidney measures 10.8 cm long; left kidney measures 11.7 cm long. Right renal cortical thickness is 1.2 cm; left renal cortical thickness is 1.3 cm. Renal c ortical echotexture is normal. No hydronephrosis or nephrolithiasis. No suspicious solid mass lesio ns. There is a 1.2 cm simple cyst in the superior pole of left kidney. Bladder: Pre-void bladder volume is 648 mL. There is a Tate catheter in the bladder. There is het erogeneous, masslike area in the posterior wall of the bladder base measuring 4.1 x 8.5 x 2.0 cm. On Doppler ultrasound, there is vascularity within the mass. There is echogenic debris within the bladde r. Miscellaneous: No free pelvic fluid. IMPRESSION: 1. There is a masslike area in the posterior wall of the bladder base. Cannot exclude bladder neoplas m. Recommend cystoscopy for further evaluation. 2. Debris within the bladder consistent with UTI. 3. No hydronephrosis. A simple cyst is noted in the left kidney. Dictated by: Peggy Riley M.D. on 06/14/2016 at 11:48 Approved by: Peggy Riley M.D. on 06/14/2016 at 11:56
--- NOTE | 2016-06-14 12:36 | NUR ---
Chronic fagan cath replacement Pt arrived at hospital with chronic fagan catheter. Fagan had good output on NOC shift as well as this am (450 output at 1200). During abdominal ultrasound the tech noticed that the fagan was not visible in bladder and that there was approx 650 cc urine retained. Attempt was made to flush existing fagan in place but we didn't have the proper materials to do so, & it was also unclear how long this fagan had been in place. So new fagan catheter was placed today, and 800+ cc urine immediately filled bag. Continuing to monitor.
--- NOTE | 2016-06-14 15:53 | NUR ---
Social Work: Initial Assessment Data & Assessment: See Initial Assessment. Spot Machine Operator attempted to meet with patient and complete initial assessment, but the patient was asleep. SW spoke with patient's [id number] Christopher Blandon and reviewed SW role, discussed discharge planning and initial assessment complete. Patient' NOK is his sister Raquel Blandon [phone] and DPOA is patient cyndy Blandon [phone]. SW requested a copy of patient's DPOA. Patient's PCP is doctor Gera Clifford. Patient's insurance is Medicare. Patient does not have any VA or LTC benefits. Patient lives at [facility] and he requires assistance with ADL's. Patient uses a wheel-chair at baseline. Patient has no HH history. Patient has been to [facility] in the past. Currently the plan is for the patient to return to [facility] when discharged. [facility] will need to complete a bedside assessment before the patient returns. SW discussed HH options, but patient's [id number] stated that he will speak with his and the patient about a choice. SW will continue to follow and assist patient throughout stay. SW provided contact information on patient's whiteboard. Plan: Patient is likely to discharge back to [facility] when discharged via POV and rule out HH. SW will continue to follow and assist patient throughout stay. Adelina Shultz LMSW, KATHRYN Addendum: 06/14/16 at 1606 by ADELINA SHULTZ SS Amended: Links added.
--- NOTE | 2016-06-14 16:11 | DRSVH ---
[facility] [facility] [place] [address] Echocardiogram Report Name: AMERICA MARTÍNEZ Study Date: 06/14/2016 Height: 68 in Hospital Exam Location: [facility] Weight: 203 lb Gender: Male BSA: 2.1 m2 : 1925 Age: 89 yrs BP: 111/71 mmHg Reason For Study: Atrial fibrillation, palpitations Ordering Physician: HOSPITALIST DANAerformed By: Cayetano Lundberg Referring Physician: Merlyn HAMMER Interpretation Summary 1) Mild concentric left ventricular hypertophy with normal left ventricular size and normal systolic function (EF 55-60%). 2) No obvious focal wall motion abnormalities noted but poor endocardial definition reduces the sensitivity for the detection of such. 3) Grossly, normal right ventricular size and normal function. 4) Severely dilated left atrium and moderately dilated right atrium. 5) Age related calcification of the aortic and mitral valves but no significant stenosis or regurgitation present. 6) Mildly enlarged aortic root (diameter 4.3cm) and moderate enlarged ascending aorta (diameter 4.4cm). 7) Compared to the Echo done 04/30/2016, aorta enlargement is seen today (probably due to better quality images). Procedure: A two-dimensional transthoracic echocardiogram with color flow and Doppler was performed. The study quality was technically adequate. Comparison is made with the echocardiogram of 04/30/16. The patient was in atrial fibrillation with controlled ventricular rate during the exam. Left Ventricle: There is mild concentric left ventricular hypertrophy. The left ventricle is normal in size. Proximal septal thickening is noted. The ejection fraction is estimated to be 55-60%. Left ventricular systolic function is normal. There are no obvious focal wall motion abnormalities noted but poor endocardial definition reduces the sensitivity for the detection of such. Right Ventricle: The right ventricle grossly appears normal in size with probable normal systolic function. Atria: The left atrium is severely dilated. The right atrium is moderately dilated. The interatrial septum is intact with no evidence for an atrial septal defect. Mitral Valve: The mitral valve leaflets appear borderline thickened, but open well. There is mild mitral annular calcification. There is mild mitral regurgitation. Aortic Valve: The aortic valve is trileaflet. The aortic valve is mildly calcified. There is no aortic valve stenosis. There is trace aortic regurgitation. Tricuspid Valve: The tricuspid valve is normal. There is mild tricuspid regurgitation. Pulmonic Valve: The pulmonic valve leaflets are thin and pliable; valve motion is normal. There is a trace or physiologic amount of pulmonic regurgitation. Great Vessels: The aortic root is mildly dilated. The ascending aorta is moderately enlarged. The pulmonary artery is normal size. The inferior vena cava was not visualized. Pericardium/ Pleura There is no pericardial effusion. There is no pleural effusion. MMode/2D Measurements & Calculations LVIDd: 4.8 cm LA A2 area RA long axis LVOT diam EPSS: 0.92 cm IVSd: 1.5 cm RA area AoV Opening LVPWd: 1.4 cm LA A4 area : 24.6 cm Ao root diam LA length (vol) RA vol: 85.7 ml RA asc Aorta Diam LA vol: 109.7 ml : 41.7 mm2 LA vol index : 53.3 ml/m2 LV whittaker. diameter/BSA TAPSE: 0.74 cm (cm/m^2): 2.3 Doppler Measurements & Calculations Ao V2 max MV E max uriel Med Peak E' Uriel TR max uriel : 121.5 cm/sec : 88.5 cm/sec : 221.3 cm/sec Ao max PG E/E' med: 17.2 TR max P.6 mmHg : 6.0 mmHg Lat Peak E' Uriel PA V2 max: 72.5 cm/sec Ao mean PG PA mean P.3 mmHg E/E' lat: 10.9 LVOT Max Uriel E/e' average : 73.0 cm/sec KATHRINE(I,D): 2.0 cm sev ratio AI P1/2t : 740.7 msec AI dec slope : 86.9 cm/s2c Ao V2 mean LV V1 max PG PA V2 mean KATHRINE indexed to BSA : 93.0 cm/sec : 55.3 cm/sec (cm^2/m^2): 0.98 Ao V2 VTI: 20.8 cmLV V1 VTI KATHRINE(V,D): 1.9 cm2 : 13.2 cm Reading Physician:04:11 PM
[2016-06-14] MEDS: cefTRIAXone Inj 1,000 MG in Dextrose 5% Minibag Plus 50 ML IV SCH (20:18)
[2016-06-15] VITALS (8 sets, daily range): BP systolic 105–127; BP diastolic 55–84; PULSE 83–116; RESP 16–18; O2SAT 93–96
[2016-06-15] MEDS: 0.9% Sodium Chloride 1,000 ML IV SCH (05:45)
[2016-06-15] MEDS: Pantoprazole 20 mg ER24 Tablet PO SCH (08:35)
[2016-06-15] MEDS: Magnesium Chloride SR 64 mg ER24 Tablet PO SCH (08:37)
--- NOTE | 2016-06-15 13:46 | NUR ---
Social Work - Continued Discharge Planning Data: EMR reviewed. Pt is on day 1 of hospitalization for UTI, AFIB with RVR, elevated trop per H&P. Pt is not medically cleared for discharge per morning rounds. Pt comes from [facility] and GIOVANI contacted [facility] to inform them of his admission and discuss discharge planning. [facility] requested SW call on Friday to request that Caterina do a bedside assessment before discharging the pt back to [facility]. SW will contact [facility] on Friday to follow up. [facility] likely to provide transportation back to facility at discharge. SW will follow for HH needs and other discharge needs. Assessment: Pt who resides at [facility]. Plan: Pt likely to return to [facility] pending bedside assessment by [facility]. GIOVANI will contact [facility] on Friday to follow up. [facility] likely to provide transportation back to facility at discharge. GIOVANI will follow for HH needs and other discharge needs. CLINT Perez Addendum: 06/15/16 at 1522 by DINO DELANEY Pt's sister came into hospital and requested to speak with GIOVANI. Sister states that [facility] had called her yesterday. GIOVANI explained that [facility] had been contacted today and they will need to be contacted closer to discharge. GIOVANI discussed HH with sister and she is unclear if this would be helpful or not as pt is w/c bound at baseline. GIOVANI states that GIOVANI will be in touch with sister and nephew regarding any other needs that come up. GIOVANI will continue to follow. CLINT He
--- NOTE | 2016-06-15 15:49 | NUR ---
Activity/safety Bed alarm triggered, pt sitting on the edge of the bed. sts "I have to get up to drop a bomb". Pt informed has a brief in place and is to be on bedrest. Pt insists is able getting up to the bathroom. Additional staff contacted for assistance. Pt is 2 per max assist to BSC with gait belt and FWW. BM completed. Pt encouraged to contact staff prior to getting out of bed. Bed alarm in place, pt visiting with sister. Call light with in reach, will continue to monitor.
--- NOTE | 2016-06-15 16:06 | PCM.PNMED ---
Subjective Date of Service Jun 15, 2016 Subjective Patient looks a lot better then yesterday, voice much stronger, very alert. Family member visiting, eating well. No other problems per nursing. Exam Vital Signs Vital Sign - Last Date Time Temp Pulse Resp B/P Pulse Ox O2 Delivery O2 Flow Rate FiO2 06/15/16 10:06 107 06/15/16 09:05 36.5 16 120/84 96 Room Air Intake and Output 06/14/16 06/14/16 06/15/16 Cumulative From/Thru 15:00 23:00 07:00 06/14/16 01:15 - 06/15/16 05:45 Intake Total 0 ml 1430 ml 832 ml 3262 ml Output Total 450 ml 1650 ml 400 ml 2500 ml Balance -450 ml -220 ml 432 ml 762 ml Intake Oral 0 ml 200 ml 100 ml 300 ml IV Total 1230 ml 732 ml 2962 ml Output Urine Total 450 ml 1650 ml 400 ml 2500 ml # Bowel Movements 1 1 Exam Eyes; patti eom intact enmt; well hydrated, no active lesion, no JVD CV; rate = 100, systolic murmur, irregular Resp; coarse but otherwise clear GI; soft non acute benign Skin; no active lesions or rash Neuro; 2-12 intact, no overt motor or sensory defects, dementia more alert and focused Lab and Diagnostics Result Diagram: 06/14/16 0443 06/15/16 0504 Assessment & Plan 89 y/o demented male with a history of heart failure, SVT, 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 Admitted for Afib w/RVR and altered mental status secondary to UTI. 1. Acute Afib w/RVR, poa. Active. -Hx of SVT and second degree AV block, type 1. -increase cardizem to 90 q 8 -ASA 91 mg,plavis 75, will defer to outpatient primary care as to use warfarin or not. -echo with dilated atria -thyroid normal -Lipitor 2. Acute UTI, poa. Active. -Hx of BPH w/chronic indwelling Fagan catheter and recurrent UTIs -UA +pyuria, leukocyte esterase, nitrite, occult blood; -s/p 1L bolus of normal saline, 1g IV ceftriaxone in the ED -continue IV ceftriaxone, 2g q24h. pending culture results -d/c IV fluids -culture gram neg rods, >100,000 3.Chronic Troponin Elevation of unknown significance, poa. stable. -Hx of chronically elevated troponin per chart review. Likely due to demand ischemia. -ECG: Afib w/ rate 158, evidence of old inferior infarct. No acute ST changes. -troponin 0.053 on admission, will trend 4. Unspecified dementia, present on admission. Ongoing - Increased confusion/agitation likely secondary to UTI, otherwise reportedly at baseline. - Avoid benzodiazepines due to age and high risk for delirium -continue mirtazapine 5. Chronic diastolic congestive heart failure, present on admission. Ongoing. - Previous ECHO on 04/30/16 shows HFpEF (EF 55-60%), no obvious focal wall motion abnormalities. - Clinically no evidence of decompensation or fluid overload - resume lisinopril and diuretic when stable 6. Chronic hyperlipidemia, present on admission. Ongoing. - continue home statin 7. Disposition -[facility] [place], CODE STATUS: DNR/DNI FEN: heart healthy IVF: NS at 100mls/hr DVT Prophylaxis: Sub-q Heparin, 5,000units Q8h PRN: Acetaminophen-fever/headache/mild/moderate pain Antiemetics, as needed Bowel regimen, as needed. Disposition: Patient is admitted under inpatient status with expected length of stay greater than 2 midnights due to severity of presenting symptoms, risk of adverse event, and complexity of treatment plan. GI Prophylaxis: Not indicated VTE Prophylaxis: Sub-Q Heparin (Unfractionated) Resuscitation Status: DNR/DNI:Do Not Resuscitate/Intubate Merlyn Judge MD Jun 15, 2016 16:06
[2016-06-15] MEDS: cefTRIAXone Inj 1,000 MG in Dextrose 5% Minibag Plus 50 ML IV SCH (20:20)
[2016-06-16] VITALS (10 sets, daily range): BP systolic 108–136; BP diastolic 68–73; PULSE 70–110; RESP 15–20; O2SAT 90–95
--- NOTE | 2016-06-16 04:29 | NUR ---
PT ACTIVITY/ORIENTATION Pt has remained in bed during shift. Pt assisted to turn in bed. Pt alert to self, disoriented to time, sometimes forgets year. Pt states, "I'm in the [employer] now, I've been in for about 5 years now." Pt has denied pain. Pt follows instructions, able to take PO medications w/out difficulty. Continue to monitor. Call light in reach. Bed alarm on. Intentional rounding.
[2016-06-16 07:41] LABS: TROPONIN T 0.042 ug/L (0.0-0.011)
[2016-06-16] MEDS: Pantoprazole 20 mg ER24 Tablet PO SCH (08:53)
[2016-06-16] MEDS: Magnesium Chloride SR 64 mg ER24 Tablet PO SCH (08:53)
--- NOTE | 2016-06-16 09:20 | NUR ---
NICOLE verbally signed. Pt stated he could physically sign. CLINT Perez
--- NOTE | 2016-06-16 10:22 | PCM.PNMED ---
Subjective Date of Service Jun 16, 2016 Subjective Patient alert communicative, some confusion, with no complaints today. Urine culture shows pseudomonas. No fever, WBC OK. Exam Vital Signs Vital Sign - Last Date Time Temp Pulse Resp B/P Pulse Ox O2 Delivery O2 Flow Rate FiO2 06/16/16 09:18 37.2 88 18 119/69 95 Room Air Intake and Output 06/15/16 06/15/16 06/16/16 Cumulative From/Thru 15:00 23:00 07:00 06/14/16 01:15 - 06/16/16 06:11 Intake Total 1092 ml 300 ml 4654 ml Output Total 775 ml 850 ml 4125 ml Balance 317 ml -550 ml 529 ml Intake Oral 925 ml 300 ml 1525 ml IV Total 167 ml 3129 ml Output Urine Total 775 ml 850 ml 4125 ml # Bowel Movements 1 2 Exam Eyes; patti eom intact enmt; well hydrated, no active lesion, no JVD CV; rate = 90's, systolic murmur, irregular Resp; coarse but otherwise clear GI; soft non acute benign Skin; no active lesions or rash Neuro; 2-12 intact, no overt motor or sensory defects, dementia more alert and focused Lab and Diagnostics Result Diagram: 06/14/16 0443 06/16/16 0544 Assessment & Plan 89 y/o demented male with a history of heart failure, SVT, 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 Admitted for Afib w/RVR and altered mental status secondary to UTI. 1. Acute Afib w/RVR, poa. improved. -Hx of SVT and second degree AV block, type 1. -increase cardizem to 90 q 8 -ASA 91 mg,plavis 75, will defer to outpatient primary care as to use warfarin or not. -echo with dilated atria -thyroid normal -Lipitor 2. Acute UTI, poa. Active. -Hx of BPH w/chronic indwelling Fagan catheter and recurrent UTIs -UA +pyuria, leukocyte esterase, nitrite, occult blood; -s/p 1L bolus of normal saline, 1g IV ceftriaxone in the ED -IV ceftriaxone day 3, this will be changed to Cefepime today IV for pseudomonas -culture gram neg rods, >100,000, Pseudomonas resistant to quinolones 3.Chronic Troponin Elevation of unknown significance, poa. stable. -Hx of chronically elevated troponin per chart review. Likely due to demand ischemia. -ECG: Afib w/ rate 158, evidence of old inferior infarct. No acute ST changes. -troponin flat, no evidence of ischemia 4. Unspecified dementia, present on admission. Ongoing - Increased confusion/agitation likely secondary to UTI, otherwise reportedly at baseline. - Avoid benzodiazepines due to age and high risk for delirium -continue mirtazapine 5. Chronic diastolic congestive heart failure, present on admission. Ongoing. - Previous ECHO on 04/30/16 shows HFpEF (EF 55-60%), no obvious focal wall motion abnormalities. - Clinically no evidence of decompensation or fluid overload - resume lisinopril and diuretic when stable 6. Chronic hyperlipidemia, present on admission. Ongoing. - continue home statin 7. Disposition -[place] [facility] [place], assisted, pcp is Lisa, wheel chair dependent CODE STATUS: DNR/DNI FEN: heart healthy IVF: NS at 100mls/hr DVT Prophylaxis: Sub-q Heparin, 5,000units Q8h PRN: Acetaminophen-fever/headache/mild/moderate pain Antiemetics, as needed Bowel regimen, as needed. Disposition: Patient is admitted under inpatient status with expected length of stay greater than 2 midnights due to severity of presenting symptoms, risk of adverse event, and complexity of treatment plan. GI Prophylaxis: Not indicated VTE Prophylaxis: Sub-Q Heparin (Unfractionated) VTE Mechanical Devices: Intermittant Pneumatic CD Resuscitation Status: DNR/DNI:Do Not Resuscitate/Intubate Merlyn Judge MD Jun 16, 2016 10:22
[2016-06-16] MEDS ORDERED: 0.9% Sodium Chloride 100 ML ONE (11:01)
[2016-06-16] MEDS: Cefepime Inj 1,000 MG in Dextrose 5% Minibag Plus 50 ML IV SCH ×3 (11:04→23:39)
--- NOTE | 2016-06-16 15:23 | NUR ---
Q2 turns / Mentation Pt has been rotated in bed every Q2 hrs in order to prevent skin breakdown. Pt frequently pulls the pillows out of moves off of the pillows himself. Pt is oriented to self only. Seems to be fixated on the writing on the white board and thinks that it is instructions from the Dr. that he doesn't understand. Attempted to explain to pt what the witting on the board meant but pt continues to believe that this is from the Dr and he needs to understand what it means. Able to redirect pt with warm blankets and a nap. Abx running in Lt FA IV. Bed alarm in place and on. Care continues.
[2016-06-17] VITALS (7 sets, daily range): BP systolic 101–126; BP diastolic 61–75; PULSE 66–92; RESP 18–20; O2SAT 92–95
--- NOTE | 2016-06-17 04:45 | NUR ---
incontinence patient incontinent of loose stool. put it all over his hands. patient given a bath. scrubbed hands, scrubbed the bed. cortes area and scrotum with small skin tears. applied calmoseptine care ongoing.
[2016-06-17] MEDS ORDERED: 0.9% Sodium Chloride 250 ML ONE (06:38)
[2016-06-17] MEDS: Pantoprazole 20 mg ER24 Tablet PO SCH (08:27)
[2016-06-17] MEDS: Cefepime Inj 1,000 MG in Dextrose 5% Minibag Plus 50 ML IV SCH ×2 (08:27→16:47)
[2016-06-17] MEDS: Magnesium Chloride SR 64 mg ER24 Tablet PO SCH (08:28)
--- NOTE | 2016-06-17 11:44 | NUR ---
Social Work - Continued Discharge Planning Data: EMR reviewed. Pt is on day 3 of hospitalization for UTI, AFIB with RVR, elevated trop per H&P. Pt is not medically cleared for discharge per morning rounds. Pt comes from [facility] and GIOVANI contacted [facility] as requested to do a bedside assessment before discharging the pt back to facility. Caterina at [facility] requested that SW contact them when pt is likely to discharge within 24 hours. She stated that she thinks the pt and family met with Ruperto last week before he was admitted to the hospital and asked SW to follow up on this plan. GIOVANI spoke to son Felipe via phone who stated that this had been discussed but the meeting had never occured and it had been determined that the pt did not need hospice at this time. [facility]. SW will follow for HH needs and other discharge needs. Assessment: Pt who resides at [facility] Plan: Pt likely to return to [facility] pending bedside assessment by [facility]. GIOVANI will contact [facility] on Friday to follow up. [facility] likely to provide transportation back to facility at discharge. SW will follow for HH needs and other discharge needs. CLINT Perez
--- NOTE | 2016-06-17 17:18 | PCM.PNMED ---
Subjective Date of Service Jun 17, 2016 Subjective denies any new issues/complaints Exam Vital Signs Vital Sign - Last Date Time Temp Pulse Resp B/P Pulse Ox O2 Delivery O2 Flow Rate FiO2 06/17/16 13:31 36.9 66 20 113/67 92 Room Air Intake and Output 06/16/16 06/16/16 06/17/16 Cumulative From/Thru 15:00 23:00 07:00 06/14/16 01:15 - 06/17/16 06:45 Intake Total 860 ml 250 ml 5764 ml Output Total 650 ml 650 ml 5425 ml Balance 210 ml -400 ml 339 ml Intake Oral 700 ml 250 ml 2475 ml IV Total 160 ml 3289 ml Output Urine Total 650 ml 650 ml 5425 ml # Bowel Movements 1 3 General: Alert, Cooperative, No Acute Distress Eyes: Scleral Anicteric Mouth: Mucous Membr Moist/[place] Neck: Supple Chest & Lungs: Chest Wall Normal, Clear to auscultation & percussion Cardiovascular: Regular Rate/Rhythm Abdomen: Non-tender, Non-distended, Normoactive bowel tones, Soft Extremities: No cyanosis/clubbing/edma bilat Neurological: Grossly Neurologically Intact, Normal Speech IVs and Medications Medications Reviewed: Medications were reviewed in detail Lab and Diagnostics Result Diagram: 06/14/16 0443 06/16/16 0544 Assessment & Plan 89 y/o demented male with a history of heart failure, SVT, 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 Admitted for Afib w/RVR and altered mental status secondary to UTI. # Acute Afib w/ RVR, poa. improved. -Hx of SVT and second degree AV block, type 1. -increase cardizem to 90 q 8 -ASA 91 mg, Plavix 75, will defer to outpatient primary care as to use warfarin or not. -echo with dilated atria -thyroid normal # Acute Pseudomonas UTI, poa. Active. -Hx of BPH w/ chronic indwelling Fagan catheter and recurrent UTIs -IV ceftriaxone day 3, this will be changed to Cefepime on 06/16/16 IV for pseudomonas -culture gram neg rods, >100,000, Pseudomonas resistant to quinolones -ID consulted today. will f/u w/ further recs regarding course of Abx. # Chronic Troponin Elevation of unknown significance, poa. stable. -Hx of chronically elevated troponin per chart review. Likely due to demand ischemia. -ECG: Afib w/ rate 158, evidence of old inferior infarct. No acute ST changes. -troponin flat, no evidence of ischemia # Unspecified dementia, present on admission. Ongoing - Increased confusion/agitation likely secondary to UTI, otherwise reportedly at baseline. - Avoid benzodiazepines due to age and high risk for delirium - continue mirtazapine # Chronic diastolic congestive heart failure, present on admission. Ongoing. - Previous ECHO on 04/30/16 shows HFpEF (EF 55-60%), no obvious focal wall motion abnormalities. - Clinically no evidence of decompensation or fluid overload - resume lisinopril and diuretic when stable # Chronic hyperlipidemia, present on admission. Ongoing. - continue home statin Disposition: 1-2 days -[facility], assisted, pcp is Lisa, wheel chair dependent GI Prophylaxis: Not indicated VTE Prophylaxis: Sub-Q Heparin (Unfractionated) VTE Mechanical Devices: Intermittant Pneumatic CD Resuscitation Status: DNR/DNI:Do Not Resuscitate/Intubate Uri Da Silva Jun 17, 2016 17:17
--- NOTE | 2016-06-17 18:40 | NUR ---
Incontinence Pt incontinent of stool, scrotum reddened. and edematous. Pt denies discomfrt or pain. Barrier wipes and Calmoseptine applied. Clean brief in place. Call light with in reach, will continue to monitor.
--- NOTE | 2016-06-17 21:11 | NUR ---
Refusal of evening meds Pt aware of name only. Refused sips of water. Refused medications. Pt stated, "God has a way of taking care of me". He took his medications earlier today. Will cont to encourage sips of PO fluids. Appears non restless. Nonagitated. Care ongoing
--- NOTE | 2016-06-17 21:36 | CONS ---
[address] [address] CONSULTATION REPORT PATIENT: AMERICA MARTÍNEZ : 1925 MR#: [id number] ADMIT: 06/14/2016 JOB ID: [id number] DATE OF SERVICE: 06/17/2016 I would like to thank Dr. Da Silva for this consult. REASON FOR CONSULTATION: Urinary tract infection in a demented, elderly gentleman. HISTORY OF PRESENT ILLNESS: The patient is an 89-year-old, pleasant [place] , who was admitted here from [facility] for altered mental status. The patient has underlying baseline dementia, but he was admitted here because of agitation and additional confusion. When admitted he was found to have AFib with rapid ventricular response and has now subsequently converted to sinus rhythm. His mental status has improved somewhat during his three days here, and he is now pleasant and conversational, though quite confused about his situation. The patient is probably not a reliable historian; but this afternoon, he tells us he has no fevers, chills, or sweats nor does he report any recent history of constitutional symptoms. He states he has no acute pulmonary symptoms, no acute GI symptoms. He has an indwelling Tate catheter, which is chronic and apparently is asymptomatic with respect to his genitourinary symptoms. The patient believes that he is part of some sort of unit, which seems to be in some way tied to some continuation of the [place] [employer] making the rest of his history perhaps not completely reliable; but nonetheless, he seems to be asymptomatic at this point. PAST MEDICAL HISTORY: 1. Dementia. 2. Organic heart disease. a. AV block. b. Recent AFib with rapid ventricular response. 3. Benign prostatic hypertrophy with chronic indwelling Tate. SOCIAL HISTORY: The patient lives at [facility]. He neither smokes nor drinks. He served in the [employer] in the early 1950s. FAMILY HISTORY: Unknown at this point as the patient is demented and unable to recall. REVIEW OF SYSTEMS: A review of systems was done. The patient states he has no headache, no sore throat. No visual complaints. No cough, shortness of breath, nausea, vomiting or diarrhea. He has a Tate catheter. He has no urinary symptoms. He can walk short distances with a walker according to his history. The remainder of the review of systems is negative. PHYSICAL EXAMINATION: Physical exam reveals an elderly gentleman, who is very pleasant and appropriate with fluent speech, but he was confused. His temperature is 36.9, pulse 66, respiratory rate 20, blood pressure 113/67. He is saturating 92% on room air. His BMI is 31. Mental status: He is oriented times one, though he is aware he is in [facility] at this time, though he does seem to think he is part of a [employer] unit, which was his job some 60 years ago. Examination of the head: No trauma. No temporal wasting. Conjunctivae are somewhat pale. No scleral icterus. Oral cavity: No thrush or pharyngitis. Neck without significant adenopathy or JVD. Lungs: Clear. Cardiac: Tones regular rate and rhythm this afternoon without any murmurs. Abdomen: Slightly distended. No hepatosplenomegaly no ascites. Tate catheter is present. Clear yellow urine is noted. Extremities without evidence of synovitis or joint inflammation. He does have bilateral venous stasis changes bilaterally. The patient can move all of his extremities, though we did not attempt to get him up and ambulate. Remainder of the physical unremarkable. LABORATORIES: Labs include white count 7000 on admit, now 4900 and completely normal diff. Creatinine 0.82. Urinalysis packed with white cells, a few red cells, but keep in mind he has a chronic indwelling Tate. Blood cultures negative. MRSA screen negative. Urine grew Pseudomonas aeruginosa which was resistant to Cipro. IMAGING: Includes a chest radiograph: Right lower lobe opacity noted. Could be aspiration, atelectasis, or pneumonia. Ultrasound of the kidneys shows mass-like area in the posterior wall of the bladder base, which could be neoplasm, debris in the bladder consistent with UTI, keeping in mind he has a chronic Tate. IMPRESSION: It seems unlikely that the patient's mental status was on the basis of his severe and complicated Pseudomonas urinary tract infection. The patient has no documented fever or leukocytosis. 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 The fact that his urine grew Pseudomonas is not surprising as he has been on antibiotics in the past, and all patients with chronic Tate catheters beyond 10-14 days will always have a positive urine culture with one organism or another. Patient's mental status seems to have improved according to descriptions from the emergency department, and I suspect that that improvement in mental status is more related to the control of his heart rhythm and going from atrial fibrillation with rapid ventricular response back to sinus rhythm with a more reasonable rate. All in all, I do not think the patient has a significant urinary tract infection. It is much more likely he is simply colonized with this Pseudomonas. Rather than treat the patient 10-14 days for a complicated Pseudomonas urinary tract infection, I think a compromised position might be to treat for three days with IV cefepime, meropenem, or Zosyn and simply discontinue antibiotics if his mental status is reasonable and allow him to go back to the assisted-living facility. RECOMMENDATIONS: 1. Cefepime times 3 days. 2. I would not re-culture the urine after three days. This is likely to grow something which would confuse us. 3. Unless there are any other changes, will continue to follow for the next day or two, but then at that point, I think he will be discharged back to [facility]. Thank you very much for this consult.
[2016-06-18] VITALS (9 sets, daily range): BP systolic 103–124; BP diastolic 68–76; PULSE 67–96; RESP 16–18; O2SAT 90–95
[2016-06-18] MEDS: Heparin 5,000 Unit/mL Inj SUBQ SCH ×3 (01:01→16:05)
[2016-06-18] MEDS: Cefepime Inj 1,000 MG in Dextrose 5% Minibag Plus 50 ML IV SCH ×3 (01:01→15:54)
--- NOTE | 2016-06-18 06:05 | NUR ---
Vtach/refusal of assessment Pt had 17 beats of Vtach while this RN was in the room. pt asymptomatic. There were orders for AM labs. Dr. Leung was notified; no further orders. Pt took his midnight meds, but allowed only few assessments. cooperative with turning; had slight SOB with exertion, relieved with resting.
[2016-06-18 06:42] LABS: BASOPHILS % (AUTO) 0.4 % (0-3); EOSINOPHILS % (AUTO) 5.5 % (0-5); MONOCYTES % (AUTO) 9.2 % (4-12); Mean Corpuscular Hemoglobin 29.9 pg (27.0-35.0); Mean Corpuscular Volume 92.4 fL (81-100); NEUTROPHILS % (AUTO) 57.1 % (40-74); Platelet Count 252 bil/L (150-400)
[2016-06-18 07:09] LABS: Magnesium 1.9 mg/dL (1.6-2.6)
[2016-06-18] MEDS: Magnesium Chloride SR 64 mg ER24 Tablet PO SCH (08:07)
[2016-06-18] MEDS: Pantoprazole 20 mg ER24 Tablet PO SCH (08:11)
--- NOTE | 2016-06-18 11:08 | NUR ---
Called and spoke with Kimberley and Caterina to have them come over and do bedside assessment. They want clinicals faxed to [phone] and then Caterina will call me once she reviews. Clinicals faxed. Updated CHIEF OF [employer]ROL
--- NOTE | 2016-06-18 11:29 | NUR ---
Mentation Patient is alert to self only. Able to make needs known. denies pain or discomfort at this time, per patient," no problem." Stable VS. Oxygenation room air 94%. Received all PO medications as ordered this AM with out difficulty swallowing. loose stoolX1, patient is on IV ABO as ordered. Calmoseptine applied for superficial skin issues in the cortes area. Tate patent and draining clear yellow urine. Bed alarm on for safety and dementia. Independent with all meals at bed side after set up. No sign and symptoms of respiratory or cardiac distress noted. per Tele SR 85, Afib and PVC. Will continue to monitor vital signs, pain, and safety.
--- NOTE | 2016-06-18 11:56 | NUR ---
[facility] Signed @ 9295AM
--- NOTE | 2016-06-18 13:06 | PROG NOTE ---
[address] [address] PROGRESS NOTE PATIENT: AMERICA MARTÍNEZ : 1925 MR#: [id number] ADMIT: 06/14/2016 JOB ID: [id number] DATE: 06/18/2016 REASON FOR FOLLOWUP: Possible Pseudomonas urinary tract infection. INTERVAL HISTORY: The patient reports he feels fine this morning. No fevers. No chills. No cough, shortness of breath. No nausea, vomiting, or diarrhea. All of this history is questionable, as the patient continues to believe he is involved in some sort of operation which has shifted from [facility] to the [facility]. He is surprised that a physical exam is included in the services offered by the [facility]. PHYSICAL EXAMINATION: Reveals an afebrile gentleman who is very pleasant, who has fluent speech, and is completely confused. Temperature 36.6, pulse 96, respiratory rate 18, blood pressure 123/71. He is saturating reasonably well at 91% on room air. He is in no discomfort whatsoever. His lungs are reasonably clear. Cardiac tones regular without murmur. Abdomen benign. No skin rash. LABORATORIES: Include white count 5400 today, 5% eosinophils. Creatinine 0.7. Micro studies include negative blood cultures. The urine grew Pseudomonas as was discussed yesterday. IMPRESSION: This is an unfortunate gentleman who is quite demented, though does not appear to be in any discomfort. His urine grew Pseudomonas, but I do not really think that that was a major factor that led to his mental status alteration and suspect that was more likely due to his atrial fibrillation with rapid ventricular response which has been corrected. RECOMMENDATIONS: 1. I would complete the patient's cefepime today. The patient could then be discharged at any time back to [facility]. 2. I would not perform any routine followup urine cultures, as these will inevitably be positive in this gentleman who has an indwelling Tate. ID will sign off at this time.
--- NOTE | 2016-06-18 17:02 | NUR ---
Social Work - Readiness for Discharge Data: EMR reviewed. Pt is on day 4 of hospitalization for UTI, AFIB with RVR, elevated trop per H&P. Pt will likely discharge tomorrow per morning rounds. Pt comes from [facility] and UR specialist contacted Caterina at [facility] as requested to do bedside assessment. [facility] likely to provide transportation back to facility at discharge. SW will follow for other discharge needs. Assessment: Pt who resides at [facility]. Plan: Pt likely to return to [facility] pending bedside assessment by [facility]. [facility] likely to provide transportation back to facility at discharge. SW will follow for other discharge needs. CLINT Perez
--- NOTE | 2016-06-18 17:54 | PCM.PNMED ---
Subjective Date of Service Jun 18, 2016 Subjective denies any new issues/complaints Exam Vital Signs Vital Sign - Last Date Time Temp Pulse Resp B/P Pulse Ox O2 Delivery O2 Flow Rate FiO2 06/18/16 14:33 36.4 77 18 103/68 95 Room Air Intake and Output 06/17/16 06/17/16 06/18/16 Cumulative From/Thru 15:00 23:00 07:00 06/14/16 01:15 - 06/18/16 06:09 Intake Total 1072 ml 259 ml 7095 ml Output Total 600 ml 500 ml 6525 ml Balance 472 ml -241 ml 570 ml Intake Oral 1072 ml 150 ml 3697 ml IV Total 109 ml 3398 ml Output Urine Total 600 ml 500 ml 6525 ml # Bowel Movements 1 0 4 Exam General: Alert, Cooperative, No Acute Distress Eyes: Scleral Anicteric Mouth: Mucous Membr Moist/[place] Neck: Supple Chest & Lungs: Chest Wall Normal, Clear to auscultation bilat Cardiovascular: Regular Rate/Rhythm Abdomen: Non-tender, Non-distended, Normoactive bowel tones, Soft Extremities: No cyanosis/clubbing/edema bilat Neurological: Grossly Neurologically Intact, Normal Speech IVs and Medications Medications Reviewed: Medications were reviewed in detail Lab and Diagnostics Result Diagram: 06/18/1661906/18/16619 Assessment & Plan 89 y/o demented male with a history of heart failure, SVT, 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 Admitted for Afib w/RVR and altered mental status secondary to UTI. # Acute Afib w/ RVR, poa. improved. -Hx of SVT and second degree AV block, type 1. -increase cardizem to 90 q 8 -ASA 91 mg, Plavix 75, will defer to outpatient primary care as to use warfarin or not. -echo with dilated atria -thyroid normal # Acute Pseudomonas UTI, poa. Active. -Hx of BPH w/ chronic indwelling Fagan catheter and recurrent UTIs -IV ceftriaxone day 3, this was changed to Cefepime on 06/16/16 IV for pseudomonas -culture gram neg rods, >100,000, Pseudomonas resistant to quinolones -appreciate ID consult. will f/u w/ recs. -last dose of antibiotics on 06/18/16 per ID recommendations. # Chronic Troponin Elevation of unknown significance, poa. stable. -Hx of chronically elevated troponin per chart review. Likely due to demand ischemia. -ECG: Afib w/ rate 158, evidence of old inferior infarct. No acute ST changes. -troponin flat, no evidence of ischemia # Unspecified dementia, present on admission. Ongoing - Increased confusion/agitation likely secondary to UTI, otherwise reportedly at baseline. - Avoid benzodiazepines due to age and high risk for delirium - continue mirtazapine # Chronic diastolic congestive heart failure, present on admission. Ongoing. - Previous ECHO on 04/30/16 shows HFpEF (EF 55-60%), no obvious focal wall motion abnormalities. - Clinically no evidence of decompensation or fluid overload - resume lisinopril and diuretic when stable # Chronic hyperlipidemia, present on admission. Ongoing. - continue home statin Disposition: likely back to [facility] tomorrow - pcp is Dr Gonzalez, - wheel chair dependent GI Prophylaxis: Not indicated VTE Prophylaxis: Sub-Q Heparin (Unfractionated) VTE Mechanical Devices: Intermittant Pneumatic CD Resuscitation Status: DNR/DNI:Do Not Resuscitate/Intubate Uri Da Silva Jun 18, 2016 17:54
[2016-06-19 00:42] VITALS: BP 116/75; PULSE 70; RESP 18; O2SAT 95
[2016-06-19] MEDS: Heparin 5,000 Unit/mL Inj SUBQ SCH ×2 (00:54→08:16)
[2016-06-19 04:14] VITALS: PULSE 63
[2016-06-19 05:54] VITALS: BP 122/73; PULSE 91; RESP 18; O2SAT 92
--- NOTE | 2016-06-19 07:17 | NUR ---
Strange Stool Pt was incontinent of stool, cortes care was performed. Pts stool was a mix of green strands, mixed into thick, cream colored mucus.
[2016-06-19] MEDS: Pantoprazole 20 mg ER24 Tablet PO SCH (08:16)
[2016-06-19] MEDS: Magnesium Chloride SR 64 mg ER24 Tablet PO SCH (08:17)
[2016-06-19 09:38] VITALS: BP 101/55; PULSE 77; RESP 20; O2SAT 97
--- NOTE | 2016-06-19 10:20 | NUR ---
Spoke with Kimberley at [facility] and after reviewing the chart they will accept patient back when ready. Updated AUTOMATION TENDER
--- NOTE | 2016-06-19 10:34 | NUR ---
Social Work: Discharge Data: Pt is on day 5 of hospitalization. EMR reviewed, pt discussed in rounds. MD states pt ready for d/c today. BLANKET BINDER spoke with [facility], no reassessment needed. BLANKET BINDER spoke with pt's sister regarding HH, choice list provided, [facility] referred from vendor calendar. 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 BLANKET BINDER confirmed with [facility] that they can milk pickup truck driver pt at 11:30am this morning in [facility]. No further d/c planning needs at this time. BLANKET BINDER will continue to follow if needs arise. Assessment: Pt who is independent at baseline. Plan: Pt will d/c back to [facility] with [facility], RN/PT/OT/BLANKET BINDER. BLANKET BINDER confirmed with [facility] that they can milk pickup truck driver pt at 11:30am this morning in [facility]ulance. No further d/c planning needs at this time. BLANKET BINDER will continue to follow if needs arise. CLINT Beck
--- NOTE | 2016-06-19 10:45 | PCM.DIMED ---
Discharge Instructions Date of Service Jun 19, 2016 Dates of Hospitalization Jun 14, 2016 at 01:42 Discharge Diagnosis Discharge Diagnosis # Acute A-fib with rapid ventricular response, present on admission. Resolved. # Acute Pseudomonas UTI, present on admissin. Presumed resolved after course of IV antibiotics. -Due to history of benign prostatic hypertrophy (BPH) and chronic indwelling Tate catheter # Acute confusion and agitation, present on admission. Likely acute exacerbation of underlying dementia due to acute urinary tract infection. Resolved. # Chronic Troponin Elevation of unknown significance, present on admission. stable. # Unspecified dementia, present on admission. stable # Chronic diastolic congestive heart failure, present on admission. stable. # Chronic hyperlipidemia, present on admission. stable. Diet Heart Healthy Activity Home Health Phyical Therapy Call your provider Fever or Chills, Shortness of breath, Bleeding, Chest pain, Vomitting, Excessive diarrhea Patient Instructions Seek immediate medical attention if any new or worsening signs or symptoms occur. Follow-up plan 1. Followup with primary care provider in 2-7 days Follow-up Provider: Gera Gonzalez MD Follow-up with PCP in: 1 week Uri Da Silva Jun 19, 2016 10:45
--- NOTE | 2016-06-19 11:47 | NUR ---
Discharge Pt d/c to [facility] at 1133 via pts wc by staff from facility. Pt denied pain. IV d/c. 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 Call made to receiving nurseHorace. All personal belongings left with pt.
--- NOTE | 2016-06-19 19:34 | PCM.DC.MED ---
Discharge Summary Date of Service Jun 19, 2016 Dates of Hospitalization Date of Hospital Admission Jun 14, 2016 at 01:42 Date of Discharge: Jun 19, 2016 Providers: Admitting Physician: Mohan Oconnell MD Primary Care Physician: Gera Gonzalez MD Attending Physician: Mohan Oconnell MD Diagnosis at Time of Discharge Diagnosis at Time of Discharge # Acute A-fib with rapid ventricular response, present on admission. Resolved. # Acute Pseudomonas UTI, present on admissin. Presumed resolved after course of IV antibiotics. -Due to history of benign prostatic hypertrophy (BPH) and chronic indwelling Fagan catheter # Acute confusion and agitation, present on admission. Likely acute exacerbation of underlying dementia due to acute urinary tract infection. Resolved. # Chronic Troponin Elevation of unknown significance, present on admission. stable. # Unspecified dementia, present on admission. stable # Chronic diastolic congestive heart failure, present on admission. stable. # Chronic hyperlipidemia, present on admission. stable. Consultations 1. ID Procedures XRay, CTs & MRIs Date of Service: 06/13/16 7814 PROCEDURE: X-RAY CHEST ONE VIEW, PORTABLE ([id number]) IMPRESSION: Right lower lobe opacity suspect for pneumonia/aspiration. Dictated by: Hector Garcia M.D. on 06/14/2016 at 8:00 Approved by: Hector Garcia M.D. on 06/14/2016 at 8:02 Other Diagnostics Date of Service: 06/14/16 1022 PROCEDURE: US RENAL SONOGRAM IMPRESSION: 1. There is a masslike area in the posterior wall of the bladder base. Cannot exclude bladder neoplasm. Recommend cystoscopy for further evaluation. 2. Debris within the bladder consistent with UTI. 3. No hydronephrosis. A simple cyst is noted in the left kidney. Dictated by: Peggy Riley M.D. on 06/14/2016 at 11:48 Approved by: Peggy Riley M.D. on 06/14/2016 at 11:56 Brief History As noted in H&P by Dr. Fonseca: 89 y/o male with a history of heart failure, SVT, second degree heart block type 1, chronically elevated troponin, dementia and chronic indwelling fagan catheter due to BPH who presented to the ED via EMS from [facility] with a report of increased confusion and agitation. He is a poor historian and history is limited due to patient condition. Patient endorses limited memory of the events leading up to his admission but states that he is without complaint. He endorses leg swelling as well as alternating diarrhea and constipation but denies fever, chills, nausea or vomiting. Terrell Che reported noticeable changes in his mental status as well as increased agitation and combative behavior. In the ED, vitals: temp 37.3C, BP 112/79, HR 145, RR 14-27, SpO2 97% room air. Labs: troponin 0.054, proBNP 1558, wbc 7.0, H/H 12.7/38.2, plt 309, sodium 135, potassium 4.0, chloride 98, bicarb 20, BUN 12, creatinine 0.81, serum glucose 110. 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 CXR without acute cardiopulmonary process. Hospital Course # Acute A-fib w/ RVR, poa. Resolved -Hx of SVT and second degree AV block, type 1. -ASA 91 mg, Plavix 75, will defer to outpatient primary care as to use warfarin or not. -echo with dilated atria -thyroid normal # Acute Pseudomonas UTI, poa. Active. -Hx of BPH w/ chronic indwelling Fagan catheter and recurrent UTIs -IV ceftriaxone day 3, this was changed to Cefepime on 06/16/16 IV for pseudomonas -culture gram neg rods, >100,000, Pseudomonas resistant to quinolones -appreciate ID consult. will f/u w/ recs. -last dose of antibiotics on 06/18/16 per ID recommendations. # Chronic Troponin Elevation of unknown significance, poa. stable. -Hx of chronically elevated troponin per chart review. Likely due to demand ischemia. -ECG: Afib w/ rate 158, evidence of old inferior infarct. No acute ST changes. -troponin flat, no evidence of ischemia # Unspecified dementia, present on admission. Ongoing - Increased confusion/agitation likely secondary to UTI, otherwise reportedly at baseline. - Avoid benzodiazepines due to age and high risk for delirium - continue mirtazapine # Chronic diastolic congestive heart failure, present on admission. Ongoing. - Previous ECHO on 04/30/16 shows HFpEF (EF 55-60%), no obvious focal wall motion abnormalities. - Clinically no evidence of decompensation or fluid overload - resume lisinopril and diuretic when stable # Chronic hyperlipidemia, present on admission. Ongoing. - continue home statin # bladder mass noted on Abd ultrasound - further followup and referral to urology will be deferred to PCP as outpatient by day of d/c lungs CTA bilat. abdomen soft, non-tender Exam Vital Signs (Last) Date Time Temp Pulse Resp B/P Pulse Ox O2 Delivery O2 Flow Rate FiO2 06/19/16 09:38 36.6 77 20 101/55 97 Room Air Test 06/13/16 23:27 06/13/16 23:40 06/13/16 23:50 06/14/16 00:00 Urine Color Yellow (YELLOW) Urine Appearance Cloudy (CLEAR,HAZY) Urine pH 7.0 (5.0-8.0) Urine Specific [place] 1.015 (1.003-1.035) Urine Protein 30mg/dL (NEG,TRACE) Urine Glucose (UA) Negativemg/dL (NEGATIVE) Urine Ketones Negativemg/dL (NEGATIVE) Urine Occult Blood Moderate (NEGATIVE) Urine Nitrite Positive (NEGATIVE) Urine Bilirubin Negative (NEGATIVE) Urine Urobilinogen 1.0mg/dL (NORMAL) Urine Leukocyte Esterase Moderate (NEGATIVE) Urine RBC 3-10/hpf (0-2) Urine WBC Packed/hpf (0-5) Urine Epithelial Cells Few/hpf (NONE-MOD) Urine Crystals Oxalic acid crystals (NONE Urine Bacteria Many/hpf (NONE-FEW) Urine Hyaline Casts None/lpf (NONE) Urine Granular Casts None seen (NONE SEEN) Urine Waxy Casts None seen (NONE SEEN) Urine Red Blood Cell Casts None seen (NONE SEEN) Urine White Blood Cell Casts None seen (NONE SEEN) Urine Mucus None seen (None Seen) Urine Trichomonas None seen (NONE SEEN) Urine Yeast None (NONE SEEN) Urinalysis Comment None Urine Culture Reflexed Indicated Hold Lara Top Tube Received (Received) Pro-B-Type Natriuretic Peptide 1558pg/mL (0-486) Lactic Acid Level 1.5mmol/L (0.4-2.0) Test 06/14/16 04:43 06/16/16 05:44 06/18/16 06:20 Total Bilirubin 0.2mg/dL (0.0-1.2) Aspartate Amino Transf (AST/SGOT) 18U/L (0-50) Alanine Aminotransferase (ALT/SGPT) 12U/L (0-44) Alkaline Phosphatase 113U/L (25-160) Total Protein 5.9g/dL (6.4-8.4) Albumin 2.5g/dL (3.4-5.0) Procalcitonin 0.05ng/mL (0.00-0.08) Thyroid Stimulating Hormone (TSH) 2.820uIU/mL (0.450-4.500) Free Thyroxine 1.00ng/dL (0.82-1.77) Troponin T 0.042ug/L (0.0-0.011) White Blood Count 5.4th/mm3 (3.8-10.1) Red Blood Count 3.54mil/mm3 (4.40-5.80) Hemoglobin 10.6g/dL (13.8-17.2) Hematocrit 32.7% (41.0-50.0) Mean Corpuscular Volume 92.4fL (81-100) Mean Corpuscular Hemoglobin 29.9pg (27.0-35.0) Mean Corpuscular Hemoglobin Concent 32.4% (32.0-37.0) Red Cell Distribution Width 15.4% (12.3-15.4) Platelet Count 252bil/L (150-400) Neutrophils (%) (Auto) 57.1% (40-74) Lymphocytes (%) (Auto) 26.9% (14-46) Monocytes (%) (Auto) 9.2% (4-12) Eosinophils (%) (Auto) 5.5% (0-5) Basophils (%) (Auto) 0.4% (0-3) Sodium Level 140mEq/L (134-144) Potassium Level 3.5mEq/L (3.5-5.2) Chloride Level 109mEq/L (97-108) Carbon Dioxide Level 20mmol/L (18-29) Blood Urea Nitrogen 11mg/dL (8-27) Creatinine 0.70mg/dL (0.76-1.27) Estimat Glomerular Filtration Rate 113mL/min (>59) Glucose Level 99mg/dL (60-99) Calcium Level 8.4mg/dL (8.5-10.1) Magnesium Level 1.9mg/dL (1.6-2.6) Discharge Medications Discharge Medications Aspirin (Aspirin) 81 Mg Tablet 81 MG PO DAILY (Reported) Atorvastatin (Lipitor) 20 Mg Tablet 20 MG PO HS (Reported) Clopidogrel (Clopidogrel) 75 Mg Tablet 75 MG PO DAILY Prescribed by: ROYAL BARBOSA DO Diltiazem ER (Diltiazem ER) 120 Mg Cap.er.12h 120 MG PO BID (Reported) Ferrous Sulfate (Ferrous Sulfate) 325 Mg Tablet 325 MG PO DAILY (Reported) Magnesium Chloride (Slow-Mag) 64 Mg Tablet 64 MG PO DAILY (Reported) Mirtazapine (Mirtazapine) 15 Mg Tablet 7.5 MG PO HS (Reported) Mv,Ca,Min/Iron Fum/FA/Lyco/Lut (Sentry Multivit & Mineral Cplt) 1 Each Tablet 1 EACH PO DAILY (Reported) Omeprazole (Omeprazole) 20 Mg Capsule.dr 20 MG PO DAILY (Reported) Ranitidine (Zantac) 300 Mg Tab 300 MG PO HS (Reported) As needed Polyethylene Glycol 3350 (Miralax) 17 Gm/Pkt Powd.pack 17 GM PO DAILY PRN PRN For Constipation Prescribed by: BURKE HERNANDEZ DO Sennosides (Senna) 8.6 Mg Tablet 8.6 MG PO BID PRN PRN For Constipation ( Reported) Followup Plan Disposition: assisted living Follow-up plan 1. Followup with primary care provider in 2-7 days Discharge Diet: Heart Healthy Discharge Activity: Home Health Phyical Therapy Patient Instructions Seek immediate medical attention if any new or worsening signs or symptoms occur. Follow-up Provider: Gera Gonzalez MD Follow-up with PCP in: 1 week Time spent 35 min copies to: Gera Gonzalez MD, Masoud Jun 19, 2016 19:33
== END 2016-06-19 11:33 | disposition home health service (06) | DRG 699 ==
LOC: EDBD 22:55 → SED 22:55 → MPC 06-14 01:42 → OBSVTOIN 06-14 01:42
PROVIDERS: ADMIT Family Medicine; ATTEND Family Medicine
PROC: 3E033RZ Introduction of Antiarrhythmic into Peripheral Vein, Percutaneous Approach (ICD-10-PCS; principal; 2016-06-13)
DX: T83.511A Infection and inflammatory reaction due to indwelling urethral catheter, initial encounter (principal); I50.32 Chronic diastolic (congestive) heart failure; F02.81 Dementia in other diseases classified elsewhere, unspecified severity, with behavioral disturbance; I48.91 Unspecified atrial fibrillation; N39.0 Urinary tract infection, site not specified; N40.0 Benign prostatic hyperplasia without lower urinary tract symptoms; E78.5 Hyperlipidemia, unspecified; G30.9 Alzheimer's disease, unspecified; Z66 Do not resuscitate; B96.5 Pseudomonas (aeruginosa) (mallei) (pseudomallei) as the cause of diseases classified elsewhere; I11.0 Hypertensive heart disease with heart failure; Z16.23 Resistance to quinolones and fluoroquinolones; N28.89 Other specified disorders of kidney and ureter; Z79.82 Long term (current) use of aspirin; Z99.3 Dependence on wheelchair

== ENCOUNTER 2016-06-19 22:42 | Emergency (ER) | payer MEDICARE ==
[~2016-06-19] VITALS: Ht 172.7 cm; Wt 83.9 kg
[~2016-06-19 22:42] MED LIST changes: -ACET325T51 PO; -FUR20 PO; -LISI2.5T PO; +MIRT15TA6 PO; -POTA10CA42 PO
[2016-06-19 22:58] VITALS: BP 109/65; PULSE 83; RESP 16; O2SAT 97
--- NOTE | 2016-06-19 23:29 | ED.REPORT ---
HPI- Male Date of Service Jun 19, 2016 ED Provider: Hugh Nagel MD 89 year old male with a history of prostate cancer, BPH, dementia and UTI's with chronic indwelling Fagan catheter who presents to the ER via EMS from [facility] for catheter replacement. Reportedly the pt has a history of gross hematuria surrounding the catheter. No hematuria reported today. Pt denies fever , vomiting and any other symptoms. Nursing Notes Stated Complaint: CATHETER REPLACEMENT Chief Complaint: Male Abdominal Pain Allergies: Coded Allergies: No Known Allergies (Verified Allergy, Unknown, 06/19/16) Scheduled Aspirin (Aspirin) 81 Mg Tablet 81 MG PO DAILY Atorvastatin (Lipitor) 20 Mg Tablet 20 MG PO HS Clopidogrel (Clopidogrel) 75 Mg Tablet 75 MG PO DAILY Diltiazem ER (Diltiazem ER) 120 Mg Cap.er.12h 120 MG PO BID Ferrous Sulfate (Ferrous Sulfate) 325 Mg Tablet 325 MG PO DAILY Magnesium Chloride (Slow-Mag) 64 Mg Tablet 64 MG PO DAILY Mirtazapine (Mirtazapine) 15 Mg Tablet 7.5 MG PO HS Mv,Ca,Min/Iron Fum/FA/Lyco/Lut (Sentry Multivit & Mineral Cplt) 1 Each Tablet 1 EACH PO DAILY Omeprazole (Omeprazole) 20 Mg Capsule.dr 20 MG PO DAILY Ranitidine (Zantac) 300 Mg Tab 300 MG PO HS Scheduled PRN Polyethylene Glycol 3350 (Miralax) 17 Gm/Pkt Powd.pack 17 GM PO DAILY PRN PRN For Constipation Sennosides (Senna) 8.6 Mg Tablet 8.6 MG PO BID PRN PRN For Constipation General Time Seen by MD: 23:10 Chief Complaint Other (Catheter replacement) Hx Obtained From: Patient, EMS Arrived By: Ambulance Onset Occurred: Onset unknown Severity: Current: No pain currently Pertinent Negative: Pt denies other symptoms Recent Healthcare: Recent doctor visit Past Medical History Past Medical History Anemia Alzheimer's disease. Dementia chronic indwelling Fagan catheter BPH Systolic/Diastolic Congestive heart failure SVT Second degree type 1 heart block Hyperlipidemia. Thyroid disease. Arthritis. Reports: Congestive heart failure, GERD, Hyperlipidemia Past Surgical History Reports: Tonsillectomy Smoking History Never Smoker Social History POLST Part A DO NOT RESUSCITATE Limited interventions Alcohol Use: Denies alcohol use Other Social History: Lives in skilled nursing, Local resident Ambulatory Status Wheelchair Review of Systems Constitutional: Denies: Fever GI: Denies: Abdominal pain, Vomiting Male: Denies Flank pain, Denies Hematuria Skin: Denies Diaphoresis Complete sys rev & neg: except as marked. Physical Exam Initial Vital Signs Vital Signs (First) Date Time Temp Pulse Resp B/P Pulse Ox O2 Delivery O2 Flow Rate FiO2 06/19/16 22:58 36.2 83 16 109/65 97 Room Air Initial VS: Reviewed Head / Eyes: Atraumatic, Normocephalic, PERRL ENT: Conjunctiva normal, No scleral icterus Neck: Full range of motion Respiratory: No respiratory distress Skin: Warm, Dry, No cyanosis Male Genitourinary: Inspection NL Normal appearing uncircumsized male genitalia with a fagan catheter. Neurologic: Speech NL, No motor deficits Interpretation & Diagnostics Lab Results Interpretation Test 06/20/16 00:00 Hold Urine Received (Received) Re-Eval/Medical Decision Re-Evaluation/Progress : Re-Evaluation/Progress Note: Discussed plan for discharge and follow up. All questions addressed. Counseled Regarding: Diagnosis, Need for follow-up, When/why to return to ED Discharge & Departure Impression: Primary Impression: Fagan catheter problem Encounter type: initial encounter Qualified Code: T83.9XXA - Unspecified complication of genitourinary prosthetic device, implant and graft, initial encounter Disposition: Home Additional Instructions: Catheter was changed. Urine culture sent. Continue previous care. Referrals: Gera Gonzalez MD (PCP) Scribe Attestation Portions of this note were transcribed by Justa Courtney. I, (Dr. Nagel) personally performed the history, physical exam and medical decision-making; I reviewed and confirmed the accuracy of the information in the transcribed note. Signed by: Justa Courtney. Afiaibe, 06/19/2016, 0000 copies to: Gera Gonzalez MD, Donald L MD Jun 19, 2016 23:28 Justa Courtney Jun 19, 2016 23:33
[2016-06-19 23:40] VITALS: BP 127/80; PULSE 91; RESP 20; O2SAT 98
[2016-06-20 02:51] VITALS: BP 135/82; PULSE 77; RESP 20; O2SAT 96
== END 2016-06-20 02:54 ==
LOC: SED 22:42 → EDBD 22:42 → EDUNIT# 22:42 → SED 06-20 02:54
DX: T83.091A Other mechanical complication of indwelling urethral catheter, initial encounter (principal); Y84.6 Urinary catheterization as the cause of abnormal reaction of the patient, or of later complication, without mention of misadventure at the time of the procedure; Y93.89 Activity, other specified; Y92.89 Other specified places as the place of occurrence of the external cause; Y99.8 Other external cause status; I50.40 Unspecified combined systolic (congestive) and diastolic (congestive) heart failure; F02.80 Dementia in other diseases classified elsewhere, unspecified severity, without behavioral disturbance, psychotic disturbance, mood disturbance, and anxiety; G30.9 Alzheimer's disease, unspecified; K21.9 Gastro-esophageal reflux disease without esophagitis; E03.9 Hypothyroidism, unspecified; E78.5 Hyperlipidemia, unspecified; Z79.82 Long term (current) use of aspirin; Z66 Do not resuscitate

== ENCOUNTER 2016-06-26 23:01 | Emergency (ER) | payer MEDICARE ==
[~2016-06-26] VITALS: Ht 172.7 cm; Wt 84.1 kg
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
[2016-06-26 23:19] VITALS: BP 111/79; PULSE 101; RESP 16; O2SAT 98
[2016-06-26 23:36] VITALS: BP 116/78; PULSE 84; RESP 15; O2SAT 96
[2016-06-26 23:55] LABS: APPEARANCE,URINE CLEAR (CLEAR,HAZY); COLOR,URINE DARK YELLOW (YELLOW); OCCULT BLOOD,URINE LARGE (NEGATIVE); PH,URINE 5.5 (5.0-8.0); UROBILINOGEN,URINE NORMAL (NORMAL)
[2016-06-27 00:30] VITALS: BP 109/59; PULSE 88; RESP 18; O2SAT 95
== END 2016-06-27 00:51 | disposition home or self-care (01) ==
LOC: SED 23:01 → EDBD 23:01 → SED 06-27 00:51
DX: T83.018A Breakdown (mechanical) of other urinary catheter, initial encounter (principal); Y84.6 Urinary catheterization as the cause of abnormal reaction of the patient, or of later complication, without mention of misadventure at the time of the procedure; Y93.89 Activity, other specified; Y92.129 Unspecified place in nursing home as the place of occurrence of the external cause; Y99.8 Other external cause status; I50.40 Unspecified combined systolic (congestive) and diastolic (congestive) heart failure; E78.5 Hyperlipidemia, unspecified; G30.9 Alzheimer's disease, unspecified; F02.80 Dementia in other diseases classified elsewhere, unspecified severity, without behavioral disturbance, psychotic disturbance, mood disturbance, and anxiety; Z79.82 Long term (current) use of aspirin; Z79.899 Other long term (current) drug therapy